=== PATIENT | female | born 1950 | race Two or more races ===

== ENCOUNTER 2016-06-10 13:01 | Inpatient (IN) | payer MEDICARE ==
[2016-06-10 14:00] LABS: VENOUS BLOOD BASE EXCESS -1.2 mmol/L; VENOUS BLOOD HCO3 23.3 mmol/L (20-32); VENOUS BLOOD PCO2 38.1 mmHg (35-63); VENOUS BLOOD PH 7.4 (7.30-7.42)
[2016-06-10 14:02] LABS: HEMATOCRIT 31.7 % (36.0-47.0); HEMOGLOBIN 9.6 g/dL (12.0-15.5); HGB HCT DIFFERENCE -2.9; MEAN CORPUSCULAR HEMOGLOBIN 16.8 pg (27.0-33.4); MEAN CORPUSCULAR HGB CONC 30.4 g/dL (32.0-36.0); MEAN CORPUSCULAR VOLUME 55 fl (80-97); RED BLOOD COUNT 5.73 10^6/uL (3.72-5.28); RED CELL DISTRIBUTION WIDTH 20.5 % (11.5-14.0); WHITE BLOOD COUNT 13.7 10^3/uL (4.0-10.5)
[2016-06-10 14:06] LABS: PROTHROMBIN TIME 13.4 SEC (11.4-15.4)
--- NOTE | 2016-06-10 14:07 | ER Document Report ---
ED General - General Chief Complaint: Fever Stated Complaint: FEVER,HEADACHE Mode of Arrival: Ambulatory Information source: Patient Notes: 66-year-old female presents with complaints of fever and sore throat foul- smelling urine. Patient notes urine foul-smelling for a few months. Patient notes fever this morning notes coworker had sore throat yesterday TRAVEL OUTSIDE OF THE [place] IN LAST 30 DAYS: No - HPI Onset: Other Onset/Duration: Persistent Quality of pain: Achy Severity: Mild Pain Level: 1 Associated symptoms: Fever, Headache, Sore throat Exacerbated by: Denies Relieved by: Denies Similar symptoms previously: No Recently seen / treated by doctor: No - Related Data Allergies/Adverse Reactions: No Known Allergies Allergy (Verified 06/10/16 13:17) Past Medical History - Social History Smoking Status: Never Smoker Cigarette use (# per day): No Chew tobacco use (# tins/day): No Smoking Education Provided: No Family History: None - Past Medical History Cardiac Medical History: Reports: Hx Hypertension Denies: Hx Coronary Artery Disease, Hx Heart Attack Pulmonary Medical History: Denies: Hx Asthma, Hx Bronchitis, Hx COPD, Hx Pneumonia Neurological Medical History: Denies: Hx Cerebrovascular Accident Malignancy Medical History: Reports: Hx Lung Cancer GI Medical History: Reports: Hx Gastroesophageal Reflux Disease Musculoskeltal Medical History: Reports Hx Arthritis Past Surgical History: Reports: Hx Cholecystectomy - Immunizations Hx Diphtheria, Pertussis, Tetanus Vaccination: Yes Review of Systems - Review of Systems Notes: REVIEW OF SYSTEMS: CONSTITUTIONAL : Admits to fever EENT: Admits to sore throat CARDIOVASCULAR: Denies chest pain. Denies palpitations or racing or irregular heart beat. Denies ankle edema. RESPIRATORY: Denies cough, cold, or chest congestion. Denies shortness of breath, difficulty breathing, or wheezing. GASTROINTESTINAL: Denies abdominal pain or distention. Denies nausea, vomiting , or diarrhea. Denies blood in vomitus, stools, or per rectum. Denies black, tarry stools. Denies constipation. GENITOURINARY: Admits to burning on urination FEMALE GENITOURINARY: Denies vaginal bleeding, heavy or abnormal periods, irregular periods. Denies vaginal discharge or odor. MUSCULOSKELETAL: Denies back or neck pain or stiffness. Denies joint pain or swelling. SKIN: Denies rash, lesions or sores. HEMATOLOGIC : Denies easy bruising or bleeding. LYMPHATIC: Denies swollen, enlarged glands. NEUROLOGICAL: Admits to headache PSYCHIATRIC: Denies anxiety or stress. Denies depression, suicidal ideation, or homicidal ideation. ALL OTHER SYSTEMS REVIEWED AND NEGATIVE. Dictation was performed using [employer] voice recognition software PHYSICAL EXAMINATION: GENERAL: Well-appearing, well-nourished and in no acute distress. HEAD: Atraumatic, normocephalic. EYES: Pupils equal round and reactive to light, extraocular movements intact, conjunctiva are normal. ENT: Nares patent, oropharynx clear without exudates. Moist mucous membranes. NECK: Normal range of motion, supple without lymphadenopathy LUNGS: Breath sounds clear to auscultation bilaterally and equal. No wheezes rales or rhonchi. HEART: Regular rate and rhythm without murmurs ABDOMEN: Soft, nontender, nondistended abdomen. No guarding, no rebound. No masses appreciated. Female : deferred Musculoskeletal: Normal range of motion, no pitting or edema. No cyanosis. NEUROLOGICAL: Cranial nerves grossly intact. Normal speech, normal gait. Normal sensory, motor exams PSYCH: Normal mood, normal affect. SKIN: Warm, Dry, normal turgor, no rashes or lesions noted. Physical Exam - Vital signs Vitals: Temp Pulse Resp BP Pulse Ox 103.1 F H 96 18 128/76 H 93 06/10/16 13:05 06/10/16 13:05 06/10/16 13:05 06/10/16 13:05 06/10/16 13:05 Course - Re-evaluation Re-evalutation: 06/10/16 14:21 Patient is noted to be febrile temp 103.1, otherwise patient looks well in no specific distress septic workup pending 06/10/16 15:00 06/10/16 15:03 Patient does meet sepsis criteria, lactic acid is elevated 2.7, sources of pneumonia as well as UTI are noted. Patient is started on Levaquin given IV fluids. She will be admitted to hospitalist service at this time - Vital Signs Vital signs: Temp Pulse Resp BP Pulse Ox 103.1 F H 96 18 128/76 H 93 06/10/16 13:05 06/10/16 13:05 06/10/16 13:05 06/10/16 13:05 06/10/16 13:05 - Laboratory Result Diagrams: 06/10/16 13:35 06/10/16 13:35 Laboratory results interpreted by me: 06/10/16 06/10/16 06/10/16 13:29 13:35 13:35 WBC 13.7 H RBC 5.73 H Hgb 9.6 L Hct 31.7 L MCV 55 L MCH 16.8 L MCHC 30.4 L RDW 20.5 H Seg Neuts % (Manual) 87 H Band Neutrophils % 2 L Lymphocytes % (Manual) 5 L Abs Neuts (Manual) 12.2 H Glucose 171 H POC Glucose 178 H Lactic Acid Total Bilirubin 1.9 H Direct Bilirubin 0.5 H AST 44 H ALT 64 H Urine Nitrite Urine Urobilinogen 06/10/16 06/10/16 13:35 13:57 WBC RBC Hgb Hct MCV MCH MCHC RDW Seg Neuts % (Manual) Band Neutrophils % Lymphocytes % (Manual) Abs Neuts (Manual) Glucose POC Glucose Lactic Acid 2.7 H Total Bilirubin Direct Bilirubin AST ALT Urine Nitrite POSITIVE H Urine Urobilinogen 4.0 H - Diagnostic Test Radiology reviewed: Image reviewed, Reports reviewed Critical Care Note - Critical Care Note Total time excluding time spent on procedures (mins): 35 Comments: 35 minutes of critical care time spent in direct contact evaluating and reevaluating the patient, treating symptoms, reviewing labs and studies and speaking with family and consultants excluding any procedures Discharge - Discharge Clinical Impression: Pneumonia Qualifiers: Pneumonia type: due to unspecified organism Laterality: left Lung location: lower lobe of lung Qualified Code(s): J18.1 - Lobar pneumonia, unspecified organism Sepsis Qualifiers: Sepsis type: sepsis due to unspecified organism Qualified Code(s): A41.9 - Sepsis, unspecified organism Urinary tract infection Qualifiers: Urinary tract infection type: acute cystitis Hematuria presence: without hematuria Qualified Code(s): N30.00 - Acute cystitis without hematuria Condition: Fair Disposition: ADMITTED INPATIENT Admitting Provider: Hospitalist Unit Admitted: Telemetry
[2016-06-10 14:19] LABS: ALANINE AMINOTRANSFERASE 64 U/L (9-52); ALBUMIN 4.6 g/dL (3.5-5.0); ALKALINE PHOSPHATASE 74 U/L (38-126); ANION GAP 17 (5-19); ASPARTATE AMINO TRANSFERASE 44 U/L (14-36); BILIRUBIN,DIRECT 0.5 mg/dL (0.0-0.4); BILIRUBIN,TOTAL 1.9 mg/dL (0.2-1.3); BLOOD UREA NITROGEN 13 mg/dL (7-20); CALCIUM 9.2 mg/dL (8.4-10.2); CARBON DIOXIDE 23 mmol/L (22-30); CHLORIDE 101 mmol/L (98-107); CREATININE RESULT 0.65 mg/dL (0.52-1.25); GLUCOSE 171 mg/dL (75-110); POTASSIUM 4.3 mmol/L (3.6-5.0); SODIUM 140.5 mmol/L (137-145)
[2016-06-10 14:21] LABS: BAND NEUTROPHILS % (MANUAL) 2 % (3-5); BASOPHILS % (MANUAL) 0 % (0-2); EOSINOPHILS % (MANUAL) 0 % (0-6); LYMPHOCYTES % (MANUAL) 5 % (13-45); NUCLEATED RED BLOOD CELLS 1 /100 WBC (0); TOTAL CELLS COUNTED 100
[2016-06-10 14:23] LABS: POIKILOCYTOSIS 2+
[2016-06-10 14:24] LABS: ANISOCYTOSIS 2+; OVALOCYTES SLIGHT; TARGET CELLS 1+; TEAR DROP CELLS SLIGHT
[2016-06-10] MEDS: NORMAL SALINE 1000 ML 1,000 ML IV PRN ×5 (14:30→22:40)
[2016-06-10 14:45] LABS: APPEARANCE,URINE SLIGHTLY-CLOUDY; BILIRUBIN,URINE NEGATIVE (NEGATIVE); GLUCOSE, URINE NEGATIVE (NEGATIVE); KETONES,URINE NEGATIVE (NEGATIVE); URINE SPECIFIC GRAVITY 1.012
[2016-06-10 14:46] LABS: LEUKOCYTE ESTERASE,URINE NEGATIVE (NEGATIVE); NITRITE,URINE POSITIVE (NEGATIVE); PROTEIN,URINE NEGATIVE (NEGATIVE)
[2016-06-10] MEDS ORDERED: LEVOFLOXACIN 750 MG/D5W RTU 150 ML IV ONE (14:59)
[2016-06-10] MEDS ORDERED: NORMAL SALINE 1000 ML 1,000 ML IV ONE (14:59)
[2016-06-10] MEDS ORDERED: IPRATROPIUM/ALBUTEROL 0.5-2.5 MG/3 ML AMPUL NEB PRN (15:44)
[2016-06-10] MEDS: ACETAMINOPHEN 325 MG TABLET PO PRN ×2 (17:53→22:39)
--- NOTE | 2016-06-10 17:56 | PDOC H&P ---
History of Present Illness Admission Date/PCP: 06/10/16 15:23 CHELY WELLS MD Patient complains of: Fever History of Present Illness: LEONIDAS RIVERA is a 66 year old female presents from home to the ER with sudden onset of fever at home. She states dates she was in her usual state of health yesterday, in fact was able [place] go [place] and then suddenly last night felt very hot, diaphoretic, chilled with a dry throat and a dry hacking cough with mild cranial headache that is constant and described as dull aching with associated myalgias and arthralgias. She reports dysuria times one month, with increased burning and itching over the last 7 days, states her urine has a foul odor and has become cloudy. She denies recent travel. She denies nausea vomiting diarrhea, melena , hematochezia, hematuria, rash, insect bites. Evaluation in the emergency department shows a urinary tract infection, she had a temperature 103.1 in the emergency department with a lactic acid elevated at 2.7 and leukocytosis 13.7 being the criteria for sepsis therefore we were asked to admit for further evaluation and management. Of note, the patient has a history of lung adenocarcinoma status post left lower lobe resection. She did not receive radiation or chemotherapy as she was told "your cancer free". She is followed with annual CT scans by her surgeon in [place]. Her last CT scan of the chest was in May 2015, therefore she is due for repeat scanning at this time. Chest x-ray here shows what could be chronic changes but there are possible parenchymal changes suggestive of either atelectasis or infiltrative diseases well. Past Medical History Cardiac Medical History: Reports: Hypertension Denies: Coronary Artery Disease, Myocardial Infarction Pulmonary Medical History: Reports: Chronic Obstructive Pulmonary Disease (COPD ) - Non-O2, non-nebulizer nonsteroid dependent Denies: Asthma, Bronchitis, Pneumonia Malignancy Medical History: Reports: Lung Cancer GI Medical History: Reports: Gastroesophageal Reflux Disease Musculoskeltal Medical History: Reports: Arthritis Hematology: Reports: Anemia, Other - Intracranial and thoracic aneurysm Past Surgical History Past Surgical History: Reports: Cholecystectomy, Other - Left lower lobectomy Social History Information Source: Patient Smoking Status: Former Smoker - Quit smoking 3 years ago Frequency of Alcohol Use: None Hx Recreational Drug Use: No Hx Prescription Drug Abuse: No - Advance Directive Resuscitation Status: Full Code Family History Family History: None. denies: Malignancy Parental Family History Reviewed: Yes Children Family History Reviewed: Yes Sibling(s) Family History Reviewed.: Yes Medication/Allergy Home Medications: Albuterol Sulfate [Proair HFA] 2 puff IH Q6HP PRN 06/10/16 Amlodipine Besylate [Norvasc 5 mg Tablet] 5 mg PO DAILY 06/10/16 Cholecalciferol (Vitamin D3) [Vitamin D3 1000 Unit Tablet] 1,000 unit PO DAILY 06/10/16 Metoprolol Tartrate [Lopressor 25 mg Tablet] 25 mg PO BID 06/10/16 Multivitamin/Iron/Folic Acid [Centrum Women Tablet] 1 tab PO DAILY 06/10/16 Pantoprazole Sodium [Protonix] 40 mg PO DAILY 06/10/16 Zolpidem Tartrate [Ambien 5 mg Tablet] 5 mg PO QHS 06/10/16 Allergies/Adverse Reactions: No Known Allergies Allergy (Verified 06/10/16 13:17) Review of Systems Constitutional: PRESENT: chills, fatigue, fever(s), headache(s). ABSENT: night sweats, weight gain, weight loss Eyes: ABSENT: visual disturbances Ears: ABSENT: hearing changes Nose, Mouth, and Throat: PRESENT: sore throat Cardiovascular: ABSENT: chest pain, dyspnea on exertion, edema, orthropnea, palpitations Respiratory: PRESENT: cough. ABSENT: hemoptysis, sputum Gastrointestinal: ABSENT: abdominal pain, constipation, diarrhea, hematemesis, hematochezia, nausea, vomiting Genitourinary: ABSENT: dysuria, hematuria Musculoskeletal: ABSENT: joint swelling Integumentary: ABSENT: rash, wounds Neurological: ABSENT: abnormal gait, abnormal speech, confusion, dizziness, focal weakness, syncope Psychiatric: ABSENT: anxiety, depression Endocrine: ABSENT: cold intolerance, heat intolerance, polydipsia, polyuria Hematologic/Lymphatic: ABSENT: easy bleeding, easy bruising Physical Exam Vital Signs: Temp Pulse Resp BP Pulse Ox 102.1 F H 101 H 20 129/64 H 99 06/10/16 17:23 06/10/16 17:23 06/10/16 17:23 06/10/16 17:23 06/10/16 17:23 Intake & Output 06/09/16 06/10/16 06/11/16 06:59 06:59 06:59 Weight 62.1 kg PHYSICAL EXAM GENERAL: NAD; well developed, well nourished; no obese; alert and oriented to person, place, time, situation HEENT: normocephalic, atraumatic; EOMI, PERRLA, no conjunctival injection, no scleral icterus; oral mucosa moist; neck supple, no LAD, normal ROM RESPIRATORY: no accessory muscle use, no increased WOB, good air entry bilaterally; no wheezes, rales, rhonchi; bilateral inspiratory crackles CARDIO: no JVD; RRR; soft 2/6 decrescendo systolic murmur left second intercostal space, nonradiating; mild tachycardia VASCULAR: no carotid bruit; no abdominal bruit; no pallor; 2+ radial; normal capillary refill GI: soft; nondistended; normal bowel sounds; no hepato spleno megaly; no rebound, rigidity, guarding; mild tenderness to left lower quadrant NEURO: normal patella reflexes; normal sensation; normal motor function; no gait abnls; no dysarthria; no nystagmus; tongue protrudes midline MSK: 5/5 strength; normal ROM hips; ambulatory without assistance; no tenderness EXTREMITIES: no calf tender; no palpable cords in calf; no clubbing, cyanosis , pedal edema PSYCH: normal affect, normal mood SKIN: warm; moist; no petechiae; no telengectasias; no jaundice; no rash Results Laboratory Results: Labs reviewed, CBC shows a leukocytosis of 13.7 and perhaps more importantly her baseline WBC count appears to however around 3000 so this is a marked leukocytosis for her, H&H of 9.6 and 32 which appear to be at her baseline with a markedly low MCV at 55 and MCHC of 30.4, normal platelets at 193, 2% bands; INR is normal; VBG shows a normal pH; chemistries are unremarkable with good renal function and LFTs show a mild elevation of AST and ALT and indirect bilirubin 1.4, lactic acid is 2.7; urinalysis shows positive nitrite for urobilinogen 1 WBC and trace amount of bacteria; she was negative for influenza A and B rapid group a strep screen also negative Impressions: Chest CT 06/10/16 00:00 IMPRESSION: 1. Right upper lobe pneumonia. 2. Cardiomegaly and ascending aortic ectasia. 3. Chronic pneumobilia. Chest X-Ray 06/10/16 13:03 IMPRESSION: Improving pneumonia. Status: Image reviewed by me - Agree with radiology Assessment & Plan - Diagnosis (1) Pneumonia Qualifiers: Pneumonia type: due to unspecified organism Laterality: right Lung location: upper lobe of lung Qualified Code(s): J18.1 - Lobar pneumonia, unspecified organism Is this a current diagnosis for this admission?: YesPlan: She is at risk for gram-negative organisms including pseudomonas given prior surgery, hospital exposure, and fixed lung disease. She will be admitted to monitored bed for broad-spectrum antibiotics, supplemental O2 as needed, nebulizer therapy, incentive spirometer. (2) UTI (urinary tract infection) Qualifiers: Urinary tract infection type: acute cystitis Hematuria presence: without hematuria Qualified Code(s): N30.00 - Acute cystitis without hematuria Is this a current diagnosis for this admission?: YesPlan: Should be covered with the above antibiotics, follow up on urine culture. Narrow antibiotics accordingly. (3) Sepsis Qualifiers: Sepsis type: sepsis due to unspecified organism Qualified Code(s): A41.9 - Sepsis, unspecified organism Is this a current diagnosis for this admission?: YesPlan: Present on admission. As evidenced by leukocytosis, hyperthermia and a source. Treat with IV fluids, and antibiotics as noted above. (4) Adenocarcinoma of left lung Is this a current diagnosis for this admission?: YesPlan: Reportedly cancer free, no evidence of recurrence of the lungs on CT scan of the chest. (5) Hypertension Qualifiers: Hypertension type: essential hypertension Qualified Code(s): I10 - Essential (primary) hypertension Is this a current diagnosis for this admission?: YesPlan: Resume home regimen as her clinical course will now. (6) Gastroesophageal reflux disease Qualifiers: Esophagitis presence: esophagitis presence not specified Qualified Code(s): K21.9 - Gastro-esophageal reflux disease without esophagitis Is this a current diagnosis for this admission?: YesPlan: Empiric PPI therapy. (7) Brain aneurysm Is this a current diagnosis for this admission?: YesPlan: Stable. (8) Microcytic anemia Is this a current diagnosis for this admission?: YesPlan: Appears to be near baseline, sent labs in the morning for anemia workup as she appears to be iron deficient based on the severe microcytosis. - Time Time Spent: Greater than 70 Minutes Medications reviewed and adjusted accordingly: Yes Anticipated discharge: Home Within: within 72 hours - Inpatient Certification Based on my medical assessment, after consideration of the patient's comorbidities, presenting symptoms, or acuity I expect that the services needed warrant INPATIENT care.: Yes I certify that my determination is in accordance with my understanding of Medicare's requirements for reasonable and necessary INPATIENT services [42 CFR 412.3e].: Yes Medical Necessity: Significant Comorbidiites Make Outpatient Treatment Too Risky , Need For IV Fluids, Need for IV Antibiotics, Risk of Complication if Not Cared For in Hospital
[2016-06-10] MEDS ORDERED: CEFEPIME INJ 2 GM VIAL IV PRN (20:00)
--- NOTE | 2016-06-10 20:46 | EKG REPORT ---
SEVERITY:- ABNORMAL ECG - SINUS RHYTHM PROBABLE LEFT ATRIAL ABNORMALITY CONSIDER ANTEROSEPTAL INFARCT BORDERLINE T ABNORMALITIES, INFERIOR LEADS : Confirmed by: Ishmael Franco 10-Jun-2016 20:45:06
[2016-06-10] MEDS ORDERED: CEFEPIME 2 GM/D5W RTU 2 GM/50 ML RTUPB IV ONE ×2 (22:30→22:56)
[2016-06-10] MEDS: GUAIFENESIN 600 MG TABLET.SA PO SCH (22:39)
[2016-06-11] MEDS: ACETAMINOPHEN 325 MG TABLET PO PRN ×2 (05:26→17:33)
[2016-06-11] MEDS: LANSOPRAZOLE 15 MG TAB.RAP.DR PO SCH (05:26)
[2016-06-11 06:49] LABS: ANION GAP 10 (5-19); BLOOD UREA NITROGEN 8 mg/dL (7-20); CALCIUM 8.4 mg/dL (8.4-10.2); CARBON DIOXIDE 21 mmol/L (22-30); CHLORIDE 107 mmol/L (98-107); CREATININE RESULT 0.49 mg/dL (0.52-1.25); GLUCOSE 158 mg/dL (75-110); SODIUM 138.4 mmol/L (137-145)
[2016-06-11 07:45] LABS: HEMATOCRIT 29.1 % (36.0-47.0); HEMOGLOBIN 8.5 g/dL (12.0-15.5); HGB HCT DIFFERENCE -3.6; MEAN CORPUSCULAR HEMOGLOBIN 15.7 pg (27.0-33.4); MEAN CORPUSCULAR HGB CONC 29.4 g/dL (32.0-36.0); MEAN CORPUSCULAR VOLUME 54 fl (80-97); RED BLOOD COUNT 5.42 10^6/uL (3.72-5.28); WHITE BLOOD COUNT 12.1 10^3/uL (4.0-10.5)
[2016-06-11] MEDS: ENOXAPARIN SODIUM INJ 40 MG/0.4 ML DISP.SYRIN SUBCUT SCH (07:53)
[2016-06-11 08:03] LABS: FOLATE > 20.00 ng/mL (>2.76)
[2016-06-11 08:12] LABS: BAND NEUTROPHILS % (MANUAL) 2 % (3-5); BASOPHILS % (MANUAL) 0 % (0-2); EOSINOPHILS % (MANUAL) 0 % (0-6); LYMPHOCYTES % (MANUAL) 15 % (13-45); TOTAL CELLS COUNTED 100
[2016-06-11 08:14] LABS: HYPOCHROMASIA 3+; MICROCYTOSIS 3+; OVALOCYTES 1+; POIKILOCYTOSIS 3+; POLYCHROMASIA SLIGHT; TARGET CELLS 1+; TEAR DROP CELLS SLIGHT
[2016-06-11] MEDS ORDERED: MAGNESIUM HYDROXIDE SUSP 30 ML UDCUP PO PRN (09:18)
[2016-06-11] MEDS ORDERED: VANCOMYCIN HCL 0 MG in DEXTROSE 5%-WATER 250 ML IV NR (09:30)
[2016-06-11] MEDS ORDERED: CEFEPIME 2 GM/D5W RTU 2 GM/50 ML RTUPB IV SCH (10:00)
[2016-06-11] MEDS: LACTOBACILLUS ACIDOPHILUS 250 MG TAB PO SCH ×2 (10:02→17:26)
[2016-06-11] MEDS: DOCUSATE SODIUM 100 MG CAPSULE PO SCH ×2 (10:02→17:26)
[2016-06-11] MEDS: GUAIFENESIN 600 MG TABLET.SA PO SCH ×2 (10:02→21:54)
[2016-06-11] MEDS: CEFEPIME HCL 2 GM in DEXTROSE 5%-WATER 100 ML IV SCH ×2 (10:02→21:54)
--- NOTE | 2016-06-11 14:22 | PDOC PROGRESS REPORT ---
Subjective Progress Note for:: 06/11/16 Subjective:: Reason for follow-up visit: Pneumonia, UTI, sepsis Hospital course: LEONIDAS RIVERA is a 66 year old female presents from home to the ER with sudden onset of fever at home. She states dates she was in her usual state of health yesterday, in fact was able to go to work [place] and then suddenly last night felt very hot, diaphoretic, chilled with a dry throat and a dry hacking cough with mild cranial headache that is constant and described as dull aching with associated myalgias and arthralgias. She reports dysuria times one month, with increased burning and itching over the last 7 days, states her urine has a foul odor and has become cloudy. She denies recent travel. She denies nausea vomiting diarrhea, melena , hematochezia, hematuria, rash, insect bites. Evaluation in the emergency department shows a urinary tract infection, she had a temperature 103.1 in the emergency department with a lactic acid elevated at 2.7 and leukocytosis 13.7 being the criteria for sepsis therefore we were asked to admit for further evaluation and management. Of note, the patient has a history of lung adenocarcinoma status post left lower lobe resection. She did not receive radiation or chemotherapy as she was told "your cancer free". She is followed with annual CT scans by her surgeon in [place]. Her last CT scan of the chest was in May 2015, therefore she is due for repeat scanning at this time. Chest x-ray here shows what could be chronic changes but there are possible parenchymal changes suggestive of either atelectasis or infiltrative diseases well. Overall really doesn't feel any better this morning in fact if anything feels a bit worse. She's more washed out, weak and can barely keep her eyes open. Still complaining of cough but not productive also. She denies chest pain, palpitations, fevers or chills. ROS: per HPI plus a total of 10 systems reviewed, pertinent positives and negatives noted above, remaining systems negative. Physical Exam Vital Signs: Temp Pulse Resp BP Pulse Ox 98.2 F 79 20 123/62 100 06/11/16 12:41 06/11/16 12:41 06/11/16 12:41 06/11/16 12:41 06/11/16 12:41 Intake & Output 06/10/16 06/11/16 06/12/16 06:59 06:59 06:59 Intake Total 3500 Balance 3500 Weight 62.1 kg PHYSICAL EXAM GENERAL: NAD; well developed, well nourished; no obese; drowsy, oriented to person place time and circumstances. Appears ill HEENT: normocephalic, atraumatic; no conjunctival injection, no scleral icterus; oral mucosa moist; RESPIRATORY: no accessory muscle use, no increased WOB, good air entry bilaterally; no wheezes, rales, rhonchi; bilateral inspiratory crackles persist CARDIO: no JVD; RRR; soft 2/6 decrescendo systolic murmur left second intercostal space, nonradiating; no tachycardia VASCULAR: no abdominal bruit; no pallor; 2+ radial; normal capillary refill GI: soft; nondistended; normal bowel sounds; no rebound, rigidity, guarding; NEURO: normal patella reflexes; normal sensation; normal motor function; no dysarthria; no nystagmus; tongue protrudes midline MSK: 4/5 strength; normal ROM hips; no tenderness EXTREMITIES: no calf tender; no palpable cords in calf; no clubbing, cyanosis , pedal edema PSYCH: normal affect, normal mood SKIN: warm; moist; no petechiae; no telengectasias; no jaundice; no rash Results Laboratory Results: 06/11/16 07:32 06/11/16 06:07 06/10/16 06/11/16 06/11/16 18:27 06:07 06:07 WBC Cancelled RBC Cancelled Hgb Cancelled Hct Cancelled MCV Cancelled MCH Cancelled MCHC Cancelled RDW Cancelled Plt Count Cancelled Seg Neutrophils % Cancelled Lymphocytes % Cancelled Monocytes % Cancelled Eosinophils % Cancelled Basophils % Cancelled Absolute Neutrophils Cancelled Absolute Lymphocytes Cancelled Absolute Monocytes Cancelled Absolute Eosinophils Cancelled Absolute Basophils Cancelled Retic Count (auto) Cancelled Absolute Retic Cancelled Sodium 138.4 Potassium 4.0 Chloride 107 Carbon Dioxide 21 L Anion Gap 10 BUN 8 Creatinine 0.49 L Est GFR ( Amer) > 60 Est GFR (Non-Af Amer) > 60 Glucose 158 H Lactic Acid 2.2 H Calcium 8.4 Iron < 10.1 L TIBC 230 L % Saturation UNABLE TO CALCULATE Ferritin 750.00 H Vitamin B12 398.0 Folate > 20.00 06/11/16 07:32 WBC 12.1 H RBC 5.42 H Hgb 8.5 L Hct 29.1 L MCV 54 L MCH 15.7 L MCHC 29.4 L RDW 21.0 H Plt Count 149 L Seg Neutrophils % Not Reportable Lymphocytes % Not Reportable Monocytes % Not Reportable Eosinophils % Not Reportable Basophils % Not Reportable Absolute Neutrophils Not Reportable Absolute Lymphocytes Not Reportable Absolute Monocytes Not Reportable Absolute Eosinophils Not Reportable Absolute Basophils Not Reportable Retic Count (auto) 3.04 H Absolute Retic 0.165 H Sodium Potassium Chloride Carbon Dioxide Anion Gap BUN Creatinine Est GFR ( Amer) Est GFR (Non-Af Amer) Glucose Lactic Acid Calcium Iron TIBC % Saturation Ferritin Vitamin B12 Folate Impressions: Chest CT 06/10/16 00:00 IMPRESSION: 1. Right upper lobe pneumonia. 2. Cardiomegaly and ascending aortic ectasia. 3. Chronic pneumobilia. Chest X-Ray 06/10/16 13:03 IMPRESSION: Improving pneumonia. Assessment & Plan - Diagnosis (1) Pneumonia Qualifiers: Pneumonia type: due to unspecified organism Laterality: right Lung location: upper lobe of lung Qualified Code(s): J18.1 - Lobar pneumonia, unspecified organism Is this a current diagnosis for this admission?: YesPlan: Not improved. Add MRSA coverage. She is at risk for gram-negative organisms including pseudomonas given prior surgery, hospital exposure, and fixed lung disease. She will be admitted to monitored bed for broad-spectrum antibiotics, supplemental O2 as needed, nebulizer therapy, incentive spirometer. (2) UTI (urinary tract infection) Qualifiers: Urinary tract infection type: acute cystitis Hematuria presence: without hematuria Qualified Code(s): N30.00 - Acute cystitis without hematuria Is this a current diagnosis for this admission?: YesPlan: Culture shows gram-negative bg, identification and susceptibility still pending. Should be covered with the above antibiotics, follow up on urine culture. Narrow antibiotics accordingly. (3) Sepsis Qualifiers: Sepsis type: sepsis due to unspecified organism Qualified Code(s): A41.9 - Sepsis, unspecified organism Is this a current diagnosis for this admission?: YesPlan: Minimally improved. Present on admission. As evidenced by leukocytosis, hyperthermia and a source. Treat with IV fluids, and antibiotics as noted above. (4) Adenocarcinoma of left lung Is this a current diagnosis for this admission?: Yes (5) Hypertension Qualifiers: Hypertension type: essential hypertension Qualified Code(s): I10 - Essential (primary) hypertension Is this a current diagnosis for this admission?: Yes (6) Gastroesophageal reflux disease Qualifiers: Esophagitis presence: esophagitis presence not specified Qualified Code(s): K21.9 - Gastro-esophageal reflux disease without esophagitis Is this a current diagnosis for this admission?: Yes (7) Brain aneurysm Is this a current diagnosis for this admission?: Yes (8) Microcytic anemia Is this a current diagnosis for this admission?: Yes - Time Time Spent with patient: 25-34 minutes Medications reviewed and adjusted accordingly: Yes Anticipated discharge: Home Within: within 72 hours
[2016-06-11] MEDS: LEVOFLOXACIN 750 MG/D5W RTU 750 MG/150 ML RTUPB IV SCH (15:02)
[2016-06-11] MEDS: VANCOMYCIN HCL 750 MG in DEXTROSE 5%-WATER 250 ML IV SCH (17:26)
[2016-06-11] MEDS ORDERED: LEVOFLOXACIN 750 MG/D5W RTU 150 ML IV SCH (18:00)
[2016-06-11] MEDS: NORMAL SALINE 1000 ML 1,000 ML IV PRN (21:57)
[2016-06-12] MEDS: LANSOPRAZOLE 15 MG TAB.RAP.DR PO SCH (05:47)
[2016-06-12] MEDS: VANCOMYCIN HCL 750 MG in DEXTROSE 5%-WATER 250 ML IV SCH ×2 (05:47→17:23)
[2016-06-12 07:36] LABS: HEMATOCRIT 26.4 % (36.0-47.0); HEMOGLOBIN 8.1 g/dL (12.0-15.5); HGB HCT DIFFERENCE -2.1; MEAN CORPUSCULAR HEMOGLOBIN 16.7 pg (27.0-33.4); MEAN CORPUSCULAR HGB CONC 30.8 g/dL (32.0-36.0); MEAN CORPUSCULAR VOLUME 54 fl (80-97); RED BLOOD COUNT 4.86 10^6/uL (3.72-5.28); RED CELL DISTRIBUTION WIDTH 20.8 % (11.5-14.0)
[2016-06-12 07:59] LABS: ANION GAP 11 (5-19); BLOOD UREA NITROGEN 6 mg/dL (7-20); CALCIUM 8.3 mg/dL (8.4-10.2); CARBON DIOXIDE 23 mmol/L (22-30); CHLORIDE 108 mmol/L (98-107); CREATININE RESULT 0.47 mg/dL (0.52-1.25); GLUCOSE 123 mg/dL (75-110); POTASSIUM 3.7 mmol/L (3.6-5.0); SODIUM 142.1 mmol/L (137-145)
[2016-06-12 08:13] LABS: BASOPHILS % (MANUAL) 0 % (0-2); EOSINOPHILS % (MANUAL) 1 % (0-6); LYMPHOCYTES % (MANUAL) 16 % (13-45); TOTAL CELLS COUNTED 100
[2016-06-12 08:16] LABS: ANISOCYTOSIS 2+; HYPOCHROMASIA 4+; MICROCYTOSIS 4+
[2016-06-12 08:17] LABS: BURR CELLS 1+; OVALOCYTES 2+; POIKILOCYTOSIS 3+; ROULEAUX 1+; SCHISTOCYTES SLIGHT; TARGET CELLS 2+
[2016-06-12] MEDS: ENOXAPARIN SODIUM INJ 40 MG/0.4 ML DISP.SYRIN SUBCUT SCH (08:29)
[2016-06-12] MEDS: CEFEPIME HCL 2 GM in DEXTROSE 5%-WATER 100 ML IV SCH ×2 (09:11→22:18)
[2016-06-12] MEDS: GUAIFENESIN 600 MG TABLET.SA PO SCH ×2 (09:11→22:18)
[2016-06-12] MEDS: DOCUSATE SODIUM 100 MG CAPSULE PO SCH ×2 (09:11→17:23)
[2016-06-12] MEDS: LACTOBACILLUS ACIDOPHILUS 250 MG TAB PO SCH ×2 (09:11→17:23)
--- NOTE | 2016-06-12 12:35 | PDOC PROGRESS REPORT ---
Subjective Progress Note for:: 06/12/16 Subjective:: Reason for follow-up visit: Pneumonia, UTI, sepsis Hospital course: LEONIDAS RIVERA is a 66 year old female presents from home to the ER with sudden onset of fever at home. She states dates she was in her usual state of health yesterday, in fact was able [place] go [place] and then suddenly last night felt very hot, diaphoretic, chilled with a dry throat and a dry hacking cough with mild cranial headache that is constant and described as dull aching with associated myalgias and arthralgias. She reports dysuria times one month, with increased burning and itching over the last 7 days, states her urine has a foul odor and has become cloudy. She denies recent travel. She denies nausea vomiting diarrhea, melena , hematochezia, hematuria, rash, insect bites. Evaluation in the emergency department shows a urinary tract infection, she had a temperature 103.1 in the emergency department with a lactic acid elevated at 2.7 and leukocytosis 13.7 being the criteria for sepsis therefore we were asked to admit for further evaluation and management. Of note, the patient has a history of lung adenocarcinoma status post left lower lobe resection. She did not receive radiation or chemotherapy as she was told "your cancer free". She is followed with annual CT scans by her surgeon in [place]. Her last CT scan of the chest was in May 2015, therefore she is due for repeat scanning at this time. Chest x-ray here shows what could be chronic changes but there are possible parenchymal changes suggestive of either atelectasis or infiltrative diseases well. Finally starting to show some improvement, her fever broke accounting for this I think. Still complaining of cough but not productive also. She denies chest pain, palpitations, or chills. ROS: per HPI plus a total of 10 systems reviewed, pertinent positives and negatives noted above, remaining systems negative. Physical Exam Vital Signs: Temp Pulse Resp BP Pulse Ox 98.2 F 72 16 132/66 H 98 06/12/16 11:15 06/12/16 11:15 06/12/16 11:15 06/12/16 11:15 06/12/16 11:15 Intake & Output 06/11/16 06/12/16 06/13/16 06:59 06:59 06:59 Intake Total 3500 940 Balance 3500 940 Weight 62.1 kg PHYSICAL EXAM GENERAL: NAD; well developed, well nourished; no obese; alert and oriented to person place time and circumstances. Appears less ill this morning HEENT: normocephalic, atraumatic; no conjunctival injection, no scleral icterus; oral mucosa moist; RESPIRATORY: no accessory muscle use, no increased WOB, good air entry bilaterally; no wheezes, rales, rhonchi; bilateral inspiratory crackles persist CARDIO: no JVD; RRR; soft 2/6 decrescendo systolic murmur left second intercostal space, nonradiating; no tachycardia VASCULAR: no abdominal bruit; no pallor; 2+ radial; normal capillary refill GI: soft; nondistended; normal bowel sounds; no rebound, rigidity, guarding; NEURO: normal patella reflexes; normal sensation; normal motor function; no dysarthria; no nystagmus; tongue protrudes midline MSK: 4/5 strength; normal ROM hips; no tenderness EXTREMITIES: no calf tender; no palpable cords in calf; no clubbing, cyanosis , pedal edema PSYCH: normal affect, normal mood SKIN: warm; moist; no petechiae; no telengectasias; no jaundice; no rash Results Laboratory Results: 06/12/16 06:38 06/12/16 06:38 06/12/16 06/12/16 06:38 06:38 WBC 6.0 RBC 4.86 Hgb 8.1 L Hct 26.4 L MCV 54 L MCH 16.7 L MCHC 30.8 L RDW 20.8 H Plt Count 157 Seg Neutrophils % Not Reportable Lymphocytes % Not Reportable Monocytes % Not Reportable Eosinophils % Not Reportable Basophils % Not Reportable Absolute Neutrophils Not Reportable Absolute Lymphocytes Not Reportable Absolute Monocytes Not Reportable Absolute Eosinophils Not Reportable Absolute Basophils Not Reportable Sodium 142.1 Potassium 3.7 Chloride 108 H Carbon Dioxide 23 Anion Gap 11 BUN 6 L Creatinine 0.47 L Est GFR ( Amer) > 60 Est GFR (Non-Af Amer) > 60 Glucose 123 H Calcium 8.3 L Assessment & Plan - Diagnosis (1) Pneumonia Qualifiers: Pneumonia type: due to unspecified organism Laterality: right Lung location: upper lobe of lung Qualified Code(s): J18.1 - Lobar pneumonia, unspecified organism Is this a current diagnosis for this admission?: YesPlan: improved. Added MRSA coverage. She is at risk for gram-negative organisms including pseudomonas given prior surgery, hospital exposure, and fixed lung disease. continue broad-spectrum antibiotics, supplemental O2 as needed, nebulizer therapy, incentive spirometer. will need 7-10d course of abx, hopefully switch to oral once cultures results available. (2) UTI (urinary tract infection) Qualifiers: Urinary tract infection type: acute cystitis Hematuria presence: without hematuria Qualified Code(s): N30.00 - Acute cystitis without hematuria Is this a current diagnosis for this admission?: YesPlan: Culture shows gram-negative bg, identification and susceptibility still pending. Should be covered with the above antibiotics, follow up on urine culture. Narrow antibiotics accordingly. (3) Sepsis Qualifiers: Sepsis type: sepsis due to unspecified organism Qualified Code(s): A41.9 - Sepsis, unspecified organism Is this a current diagnosis for this admission?: YesPlan: improved. Present on admission. As evidenced by leukocytosis, hyperthermia and a source. Treat with IV fluids, and antibiotics as noted above. (4) Microcytic anemia Is this a current diagnosis for this admission?: YesPlan: H/H is dropping without acute blood loss evident. send stool for hemoccult. Appears to be anemia of chronic disease complicated by severe iron deficient based on the severe microcytosis and undetectable iron levels. Interestingly, in 2011 a smear made note of 1+ sickle cells, she seems unaware of this. This smear shows multiple immature cell lines but no sickled cells noted, will send serum ephoresis to better clarify. start FeSO4, no IV sucrose due to acute infection. (5) Adenocarcinoma of left lung Is this a current diagnosis for this admission?: Yes (6) Hypertension Qualifiers: Hypertension type: essential hypertension Qualified Code(s): I10 - Essential (primary) hypertension Is this a current diagnosis for this admission?: Yes (7) Gastroesophageal reflux disease Qualifiers: Esophagitis presence: esophagitis presence not specified Qualified Code(s): K21.9 - Gastro-esophageal reflux disease without esophagitis Is this a current diagnosis for this admission?: Yes (8) Brain aneurysm Is this a current diagnosis for this admission?: Yes - Time Time Spent with patient: 25-34 minutes Medications reviewed and adjusted accordingly: Yes Anticipated discharge: Home Within: within 24 hours - Plan Summary Plan Summary: Likely home in the a.m. if CBC remained stable, condition changes to improve and final culture results are available to change to an oral regimen.
[2016-06-12] MEDS: LEVOFLOXACIN 750 MG/D5W RTU 750 MG/150 ML RTUPB IV SCH (16:21)
[2016-06-12] MEDS: FERROUS SULFATE 325 MG TABLET PO SCH (17:23)
[2016-06-13] MEDS: VANCOMYCIN HCL 750 MG in DEXTROSE 5%-WATER 250 ML IV SCH (06:37)
[2016-06-13] MEDS: LANSOPRAZOLE 15 MG TAB.RAP.DR PO SCH (06:37)
[2016-06-13 06:41] LABS: HEMATOCRIT 27.3 % (36.0-47.0); HEMOGLOBIN 8.6 g/dL (12.0-15.5); HGB HCT DIFFERENCE -1.5; MEAN CORPUSCULAR HEMOGLOBIN 16.9 pg (27.0-33.4); MEAN CORPUSCULAR HGB CONC 31.6 g/dL (32.0-36.0); MEAN CORPUSCULAR VOLUME 53 fl (80-97); RED BLOOD COUNT 5.11 10^6/uL (3.72-5.28); RED CELL DISTRIBUTION WIDTH 20.7 % (11.5-14.0); WHITE BLOOD COUNT 5.1 10^3/uL (4.0-10.5)
[2016-06-13 06:55] LABS: ALANINE AMINOTRANSFERASE 39 U/L (9-52); ALBUMIN 3.8 g/dL (3.5-5.0); ALKALINE PHOSPHATASE 57 U/L (38-126); ANION GAP 12 (5-19); ASPARTATE AMINO TRANSFERASE 21 U/L (14-36); BILIRUBIN,DIRECT 0.4 mg/dL (0.0-0.4); BLOOD UREA NITROGEN 10 mg/dL (7-20); CARBON DIOXIDE 24 mmol/L (22-30); CHLORIDE 107 mmol/L (98-107); CREATININE RESULT 0.51 mg/dL (0.52-1.25); GLUCOSE 110 mg/dL (75-110); POTASSIUM 4.1 mmol/L (3.6-5.0); SODIUM 143.1 mmol/L (137-145); TOTAL PROTEIN 6.8 g/dL (6.3-8.2)
[2016-06-13 07:20] LABS: BASOPHILS % (MANUAL) 0 % (0-2); EOSINOPHILS % (MANUAL) 2 % (0-6); LYMPHOCYTES % (MANUAL) 28 % (13-45); TOTAL CELLS COUNTED 100
[2016-06-13 07:25] LABS: ANISOCYTOSIS 2+; MICROCYTOSIS 4+; OVALOCYTES 2+
[2016-06-13 07:26] LABS: BURR CELLS 1+; ROULEAUX 1+; SCHISTOCYTES SLIGHT; TARGET CELLS 2+
[2016-06-13] MEDS: FERROUS SULFATE 325 MG TABLET PO SCH (09:46)
[2016-06-13] MEDS: LACTOBACILLUS ACIDOPHILUS 250 MG TAB PO SCH (09:47)
[2016-06-13] MEDS: DOCUSATE SODIUM 100 MG CAPSULE PO SCH (09:47)
[2016-06-13] MEDS: GUAIFENESIN 600 MG TABLET.SA PO SCH (09:47)
[2016-06-13] MEDS: ENOXAPARIN SODIUM INJ 40 MG/0.4 ML DISP.SYRIN SUBCUT SCH (09:48)
[2016-06-13] MEDS: CEFEPIME HCL 2 GM in DEXTROSE 5%-WATER 100 ML IV SCH (09:48)
[2016-06-13] MEDS ORDERED: VANCOMYCIN HCL 1,000 MG in DEXTROSE 5%-WATER 250 ML IV SCH (14:00)
[2016-06-13 14:34] VITALS: BP 130/61
[2016-06-13] MEDS: LEVOFLOXACIN 750 MG/D5W RTU 750 MG/150 ML RTUPB IV SCH (15:19)
[2016-06-13 16:39] LABS: ALBUMIN 2 3.1 g/dL (2.9-4.4); ALPHA-1-GLOBULIN 2 0.3 g/dL (0.0-0.4); GAMMA GLOBULIN 1.4 g/dL (0.4-1.8); PROTEIN TOTAL SERUM 6.1 g/dL (6.0-8.5)
--- NOTE | 2016-06-15 09:01 | PDOC DISCHARGE SUMMARY ---
General - Admit/Disc Date/PCP Admission Date/Primary Care Provider: 06/10/16 15:44 CHELY WELLS MD Discharge Date: 06/13/16 - Discharge Diagnosis (1) Microcytic anemia Is this a current diagnosis for this admission?: Yes (2) Pneumonia Is this a current diagnosis for this admission?: Yes (3) Sepsis Is this a current diagnosis for this admission?: Yes (4) UTI (urinary tract infection) Is this a current diagnosis for this admission?: Yes - Additional Information Resuscitation Status: Full Code Discharge Diet: As Tolerated Discharge Activity: Activity As Tolerated Home Medications: Albuterol Sulfate [Proair HFA] 2 puff IH Q6HP PRN 06/10/16 Amlodipine Besylate [Norvasc 5 mg Tablet] 5 mg PO DAILY 06/10/16 Cholecalciferol (Vitamin D3) [Vitamin D3 1000 Unit Tablet] 1,000 unit PO DAILY 06/10/16 Metoprolol Tartrate [Lopressor 25 mg Tablet] 25 mg PO BID 06/10/16 Multivitamin/Iron/Folic Acid [Centrum Women Tablet] 1 tab PO DAILY 06/10/16 Pantoprazole Sodium [Protonix] 40 mg PO DAILY 06/10/16 Zolpidem Tartrate [Ambien 5 mg Tablet] 5 mg PO QHS 06/10/16 Amoxicillin/Potassium Clav [Augmentin 875-125 Tablet] 1 each PO BID #20 tablet 06/13/16 Doxycycline Hyclate 100 mg PO BID #20 capsule 06/13/16 Ferrous Sulfate [Feosol 325 mg Tablet] 325 mg PO BIDPCBS #60 tablet 06/13/16 History of Present Illness Patient complains of: fever History of Present Illness: LEONIDAS RIVERA is a 66 year old female presents from home to the ER with sudden onset of fever at home. She states dates she was in her usual state of health yesterday, in fact was able [place] go [place] and then suddenly last night felt very hot, diaphoretic, chilled with a dry throat and a dry hacking cough with mild cranial headache that is constant and described as dull aching with associated myalgias and arthralgias. She reports dysuria times one month, with increased burning and itching over the last 7 days, states her urine has a foul odor and has become cloudy. She denies recent travel. She denies nausea vomiting diarrhea, melena, hematochezia, hematuria, rash, insect bites. Evaluation in the emergency department shows a urinary tract infection, she had a temperature 103.1 in the emergency department with a lactic acid elevated at 2.7 and leukocytosis 13.7 being the criteria for sepsis therefore we were asked to admit for further evaluation and management. Of note, the patient has a history of lung adenocarcinoma status post left lower lobe resection. She did not receive radiation or chemotherapy as she was told "your cancer free". She is followed with annual CT scans by her surgeon in [place]. Her last CT scan of the chest was in May 2015, therefore she is due for repeat scanning at this time. Chest x-ray here shows what could be chronic changes but there are possible parenchymal changes suggestive of either atelectasis or infiltrative diseases well. Hospital Course Hospital Course: presents from home to the ER with sudden onset of fever at home. She states dates she was in her usual state of health yesterday, in fact was able to go to work [place] any [place], and then suddenly last night felt very hot, diaphoretic, chilled with a dry throat and a dry hacking cough with mild cranial headache that is constant and described as dull aching with associated myalgias and arthralgias. She reports dysuria times one month, with increased burning and itching over the last 7 days, states her urine has a foul odor and has become cloudy. She denies recent travel. She denies nausea vomiting diarrhea, melena, hematochezia, hematuria, rash, insect bites. Evaluation in the emergency department shows a urinary tract infection, she had a temperature 103.1 in the emergency department with a lactic acid elevated at 2.7 and leukocytosis 13.7 being the criteria for sepsis therefore we were asked to admit for further evaluation and management. Of note, the patient has a history of lung adenocarcinoma status post left lower lobe resection. She did not receive radiation or chemotherapy as she was told "your cancer free". She is followed with annual CT scans by her surgeon in [place]. Her last CT scan of the chest was in May 2015, therefore she is due for repeat scanning at this time. Chest x-ray here shows what could be chronic changes but there are possible parenchymal changes suggestive of either atelectasis or infiltrative diseases well. Finally starting to show some improvement, her fever broke accounting for this I think. Still complaining of cough but not productive also. She denies chest pain, palpitations, or chills. Culture of the urine grew Escherichia coli ESBL sensitive to Augmentin Patient was discharged with Augmentin and doxycycline microcytic anemia with severe iron deficiency was diagnosed Patient may have thalassemia minor She was referred to hematology as follow up Physical Exam Vital Signs: Temp Pulse Resp BP Pulse Ox 98.5 F 97 12 130/61 H 99 06/13/16 14:31 06/13/16 14:31 06/13/16 14:31 06/13/16 14:31 06/13/16 14:31 Intake & Output 06/14/16 06/15/16 06/16/16 00:59 00:59 00:59 Intake Total 1007 Balance 1007 Results Laboratory Results: 06/13/16 05:54 06/13/16 05:54 06/12/16 06:07 Total Protein 6.1 Albumin 3.1 Labs- Entire Visit 06/10/16 06/10/16 06/10/16 13:29 13:35 13:35 WBC 13.7 H RBC 5.73 H Hgb 9.6 L Hct 31.7 L MCV 55 L MCH 16.8 L MCHC 30.4 L RDW 20.5 H Plt Count 193 Total Counted 100 Seg Neutrophils % Not Reportable Seg Neuts % (Manual) 87 H Band Neutrophils % 2 L Lymphocytes % Not Reportable Lymphocytes % (Manual) 5 L Atypical Lymphs % Monocytes % Not Reportable Monocytes % (Manual) 6 Eosinophils % Not Reportable Eosinophils % (Manual) 0 Basophils % Not Reportable Basophils % (Manual) 0 Absolute Neutrophils Not Reportable Abs Neuts (Manual) 12.2 H Absolute Lymphocytes Not Reportable Abs Lymphs (Manual) 0.7 Absolute Monocytes Not Reportable Abs Monocytes (Manual) 0.8 Absolute Eosinophils Not Reportable Absolute Eos (Manual) 0.0 Absolute Basophils Not Reportable Abs Basophils (Manual) 0.0 Nucleated RBCs 1 Platelet Estimate Platelet Comment ADEQUATE Polychromasia Hypochromasia Poikilocytosis 2+ Basophilic Stippling Anisocytosis 2+ Microcytosis Target Cells 1+ Tear Drop Cells SLIGHT Ovalocytes SLIGHT [place] Cells Rouleaux Schistocytes Retic Count (manual) Retic Count (auto) Absolute Retic PT 13.4 INR 0.99 VBG pH VBG pCO2 VBG HCO3 VBG Base Excess Sodium Potassium Chloride Carbon Dioxide Anion Gap BUN Creatinine Est GFR ( Amer) Est GFR (Non-Af Amer) Glucose POC Glucose 178 H Lactic Acid Calcium Iron TIBC % Saturation Transferrin Ferritin Total Bilirubin Direct Bilirubin Indirect Bilirubin Neonat Total Bilirubin AST ALT Alkaline Phosphatase Total Protein Albumin Globulin Albumin/Globulin Ratio Pjyvc-3-Bmvtjxvzg Beta Globulins Gamma Globulins M-Curtis PEP Note PEP Interpretation Vitamin B12 Folate Urine Color Urine Appearance Urine pH Ur Specific [place] Urine Protein Urine Glucose (UA) Urine Ketones Urine Blood Urine Nitrite Urine Bilirubin Urine Urobilinogen Ur Leukocyte Esterase Urine WBC (Auto) Urine RBC (Auto) Urine Bacteria (Auto) Urine Mucus (Auto) Urine Ascorbic Acid Time Trough Drawn Vancomycin Trough Influenza A (Rapid) Influenza B (Rapid) Group A Strep Rapid Slides for Path Review 06/10/16 06/10/16 06/10/16 13:35 13:35 13:35 WBC RBC Hgb Hct MCV MCH MCHC RDW Plt Count Total Counted Seg Neutrophils % Seg Neuts % (Manual) Band Neutrophils % Lymphocytes % Lymphocytes % (Manual) Atypical Lymphs % Monocytes % Monocytes % (Manual) Eosinophils % Eosinophils % (Manual) Basophils % Basophils % (Manual) Absolute Neutrophils Abs Neuts (Manual) Absolute Lymphocytes Abs Lymphs (Manual) Absolute Monocytes Abs Monocytes (Manual) Absolute Eosinophils Absolute Eos (Manual) Absolute Basophils Abs Basophils (Manual) Nucleated RBCs Platelet Estimate Platelet Comment Polychromasia Hypochromasia Poikilocytosis Basophilic Stippling Anisocytosis Microcytosis Target Cells Tear Drop Cells Ovalocytes Carolina Cells Rouleaux Schistocytes Retic Count (manual) Retic Count (auto) Absolute Retic PT INR VBG pH 7.40 VBG pCO2 38.1 VBG HCO3 23.3 VBG Base Excess -1.2 Sodium 140.5 Potassium 4.3 Chloride 101 Carbon Dioxide 23 Anion Gap 17 BUN 13 Creatinine 0.65 Est GFR ( Amer) > 60 Est GFR (Non-Af Amer) > 60 Glucose 171 H POC Glucose Lactic Acid 2.7 H Calcium 9.2 Iron TIBC % Saturation Transferrin Ferritin Total Bilirubin 1.9 H Direct Bilirubin 0.5 H Indirect Bilirubin Not Reportable Neonat Total Bilirubin Not Reportable AST 44 H ALT 64 H Alkaline Phosphatase 74 Total Protein 8.0 Albumin 4.6 Globulin Albumin/Globulin Ratio [id number]-[id number] Beta Globulins Gamma Globulins M-Curtis PEP Note PEP Interpretation Vitamin B12 Folate Urine Color Urine Appearance Urine pH Ur Specific [place] Urine Protein Urine Glucose (UA) Urine Ketones Urine Blood Urine Nitrite Urine Bilirubin Urine Urobilinogen Ur Leukocyte Esterase Urine WBC (Auto) Urine RBC (Auto) Urine Bacteria (Auto) Urine Mucus (Auto) Urine Ascorbic Acid Time Trough Drawn Vancomycin Trough Influenza A (Rapid) Influenza B (Rapid) Group A Strep Rapid Slides for Path Review 06/10/16 06/10/16 06/10/16 13:57 13:57 13:57 WBC RBC Hgb Hct MCV MCH MCHC RDW Plt Count Total Counted Seg Neutrophils % Seg Neuts % (Manual) Band Neutrophils % Lymphocytes % Lymphocytes % (Manual) Atypical Lymphs % Monocytes % Monocytes % (Manual) Eosinophils % Eosinophils % (Manual) Basophils % Basophils % (Manual) Absolute Neutrophils Abs Neuts (Manual) Absolute Lymphocytes Abs Lymphs (Manual) Absolute Monocytes Abs Monocytes (Manual) Absolute Eosinophils Absolute Eos (Manual) Absolute Basophils Abs Basophils (Manual) Nucleated RBCs Platelet Estimate Platelet Comment Polychromasia Hypochromasia Poikilocytosis Basophilic Stippling Anisocytosis Microcytosis Target Cells Tear Drop Cells Ovalocytes Leeanna Cells Rouleaux Schistocytes Retic Count (manual) Retic Count (auto) Absolute Retic PT INR VBG pH VBG pCO2 VBG HCO3 VBG Base Excess Sodium Potassium Chloride Carbon Dioxide Anion Gap BUN Creatinine Est GFR ( Amer) Est GFR (Non-Af Amer) Glucose POC Glucose Lactic Acid Calcium Iron TIBC % Saturation Transferrin Ferritin Total Bilirubin Direct Bilirubin Indirect Bilirubin Neonat Total Bilirubin AST ALT Alkaline Phosphatase Total Protein Albumin Globulin Albumin/Globulin Ratio Tcmix-5-Ibaumhhha Beta Globulins Gamma Globulins M-Curtis PEP Note PEP Interpretation Vitamin B12 Folate Urine Color YELLOW Urine Appearance SLIGHTLY-CLOUDY Urine pH 8.0 Ur Specific [place] 1.012 Urine Protein NEGATIVE Urine Glucose (UA) NEGATIVE Urine Ketones NEGATIVE Urine Blood NEGATIVE Urine Nitrite POSITIVE H Urine Bilirubin NEGATIVE Urine Urobilinogen 4.0 H Ur Leukocyte Esterase NEGATIVE Urine WBC (Auto) 1 Urine RBC (Auto) 1 Urine Bacteria (Auto) TRACE Urine Mucus (Auto) RARE Urine Ascorbic Acid NEGATIVE Time Trough Drawn Vancomycin Trough Influenza A (Rapid) NEGATIVE Influenza B (Rapid) NEGATIVE Group A Strep Rapid NEGATIVE Slides for Path Review 06/10/16 06/11/16 06/11/16 18:27 06:07 06:07 WBC Cancelled RBC Cancelled Hgb Cancelled Hct Cancelled MCV Cancelled MCH Cancelled MCHC Cancelled RDW Cancelled Plt Count Cancelled Total Counted Seg Neutrophils % Cancelled Seg Neuts % (Manual) Band Neutrophils % Lymphocytes % Cancelled Lymphocytes % (Manual) Atypical Lymphs % Monocytes % Cancelled Monocytes % (Manual) Eosinophils % Cancelled Eosinophils % (Manual) Basophils % Cancelled Basophils % (Manual) Absolute Neutrophils Cancelled Abs Neuts (Manual) Absolute Lymphocytes Cancelled Abs Lymphs (Manual) Absolute Monocytes Cancelled Abs Monocytes (Manual) Absolute Eosinophils Cancelled Absolute Eos (Manual) Absolute Basophils Cancelled Abs Basophils (Manual) Nucleated RBCs Platelet Estimate Cancelled Platelet Comment Polychromasia Hypochromasia Poikilocytosis Basophilic Stippling Anisocytosis Microcytosis Target Cells Tear Drop Cells Ovalocytes Leeanna Cells Rouleaux Schistocytes Retic Count (manual) Cancelled Retic Count (auto) Cancelled Absolute Retic Cancelled PT INR VBG pH VBG pCO2 VBG HCO3 VBG Base Excess Sodium 138.4 Potassium 4.0 Chloride 107 Carbon Dioxide 21 L Anion Gap 10 BUN 8 Creatinine 0.49 L Est GFR ( Amer) > 60 Est GFR (Non-Af Amer) > 60 Glucose 158 H POC Glucose Lactic Acid 2.2 H Calcium 8.4 Iron < 10.1 L TIBC 230 L % Saturation UNABLE TO CALCULATE Transferrin Ferritin 750.00 H Total Bilirubin Direct Bilirubin Indirect Bilirubin Neonat Total Bilirubin AST ALT Alkaline Phosphatase Total Protein Albumin Globulin Albumin/Globulin Ratio Xmgzi-4-Kvfeypros Beta Globulins Gamma Globulins M-Curtis PEP Note PEP Interpretation Vitamin B12 398.0 Folate > 20.00 Urine Color Urine Appearance Urine pH Ur Specific [place] Urine Protein Urine Glucose (UA) Urine Ketones Urine Blood Urine Nitrite Urine Bilirubin Urine Urobilinogen Ur Leukocyte Esterase Urine WBC (Auto) Urine RBC (Auto) Urine Bacteria (Auto) Urine Mucus (Auto) Urine Ascorbic Acid Time Trough Drawn Vancomycin Trough Influenza A (Rapid) Influenza B (Rapid) Group A Strep Rapid Slides for Path Review Cancelled 06/11/16 06/11/16 06/12/16 06:07 07:32 06:07 WBC 12.1 H RBC 5.42 H Hgb 8.5 L Hct 29.1 L MCV 54 L MCH 15.7 L MCHC 29.4 L RDW 21.0 H Plt Count 149 L Total Counted 100 Seg Neutrophils % Not Reportable Seg Neuts % (Manual) 81 H Band Neutrophils % 2 L Lymphocytes % Not Reportable Lymphocytes % (Manual) 15 Atypical Lymphs % Monocytes % Not Reportable Monocytes % (Manual) 2 L Eosinophils % Not Reportable Eosinophils % (Manual) 0 Basophils % Not Reportable Basophils % (Manual) 0 Absolute Neutrophils Not Reportable Abs Neuts (Manual) 10.0 H Absolute Lymphocytes Not Reportable Abs Lymphs (Manual) 1.8 Absolute Monocytes Not Reportable Abs Monocytes (Manual) 0.2 Absolute Eosinophils Not Reportable Absolute Eos (Manual) 0.0 Absolute Basophils Not Reportable Abs Basophils (Manual) 0.0 Nucleated RBCs Platelet Estimate Platelet Comment ADEQUATE Polychromasia SLIGHT Hypochromasia 3+ Poikilocytosis 3+ Basophilic Stippling PRESENT Anisocytosis Microcytosis 3+ Target Cells 1+ Tear Drop Cells SLIGHT Ovalocytes 1+ Leeanna Cells Rouleaux Schistocytes Retic Count (manual) Retic Count (auto) 3.04 H Absolute Retic 0.165 H PT INR VBG pH VBG pCO2 VBG HCO3 VBG Base Excess Sodium Potassium Chloride Carbon Dioxide Anion Gap BUN Creatinine Est GFR ( Amer) Est GFR (Non-Af Amer) Glucose POC Glucose Lactic Acid Calcium Iron TIBC % Saturation Transferrin 153 L Ferritin Total Bilirubin Direct Bilirubin Indirect Bilirubin Neonat Total Bilirubin AST ALT Alkaline Phosphatase Total Protein 6.1 Albumin 3.1 Globulin 3.0 Albumin/Globulin Ratio 1.0 Sjbvd-0-Ztfkseyjg 0.6 Beta Globulins 0.7 Gamma Globulins 1.4 M-Curtis Not Observed PEP Note Comment PEP Interpretation Comment Vitamin B12 Folate Urine Color Urine Appearance Urine pH Ur Specific [place] Urine Protein Urine Glucose (UA) Urine Ketones Urine Blood Urine Nitrite Urine Bilirubin Urine Urobilinogen Ur Leukocyte Esterase Urine WBC (Auto) Urine RBC (Auto) Urine Bacteria (Auto) Urine Mucus (Auto) Urine Ascorbic Acid Time Trough Drawn Vancomycin Trough Influenza A (Rapid) Influenza B (Rapid) Group A Strep Rapid Slides for Path Review 06/12/16 06/12/16 06/13/16 06:38 06:38 05:54 WBC 6.0 RBC 4.86 Hgb 8.1 L Hct 26.4 L MCV 54 L MCH 16.7 L MCHC 30.8 L RDW 20.8 H Plt Count 157 Total Counted 100 Seg Neutrophils % Not Reportable Seg Neuts % (Manual) 75 Band Neutrophils % Lymphocytes % Not Reportable Lymphocytes % (Manual) 16 Atypical Lymphs % Monocytes % Not Reportable Monocytes % (Manual) 8 Eosinophils % Not Reportable Eosinophils % (Manual) 1 Basophils % Not Reportable Basophils % (Manual) 0 Absolute Neutrophils Not Reportable Abs Neuts (Manual) 4.5 Absolute Lymphocytes Not Reportable Abs Lymphs (Manual) 1.0 Absolute Monocytes Not Reportable Abs Monocytes (Manual) 0.5 Absolute Eosinophils Not Reportable Absolute Eos (Manual) 0.1 Absolute Basophils Not Reportable Abs Basophils (Manual) 0.0 Nucleated RBCs Platelet Estimate Platelet Comment ADEQUATE Polychromasia Hypochromasia 4+ Poikilocytosis 3+ Basophilic Stippling Anisocytosis 2+ Microcytosis 4+ Target Cells 2+ Tear Drop Cells Ovalocytes 2+ Leeanna Cells 1+ Rouleaux 1+ Schistocytes SLIGHT Retic Count (manual) Retic Count (auto) Absolute Retic PT INR VBG pH VBG pCO2 VBG HCO3 VBG Base Excess Sodium 142.1 Potassium 3.7 Chloride 108 H Carbon Dioxide 23 Anion Gap 11 BUN 6 L Creatinine 0.47 L Est GFR ( Amer) > 60 Est GFR (Non-Af Amer) > 60 Glucose 123 H POC Glucose Lactic Acid Calcium 8.3 L Iron TIBC % Saturation Transferrin Ferritin Total Bilirubin Direct Bilirubin Indirect Bilirubin Neonat Total Bilirubin AST ALT Alkaline Phosphatase Total Protein Albumin Globulin Albumin/Globulin Ratio Ycmkc-5-Sazzxpydd Beta Globulins Gamma Globulins M-Curtis PEP Note PEP Interpretation Vitamin B12 Folate Urine Color Urine Appearance Urine pH Ur Specific [place] Urine Protein Urine Glucose (UA) Urine Ketones Urine Blood Urine Nitrite Urine Bilirubin Urine Urobilinogen Ur Leukocyte Esterase Urine WBC (Auto) Urine RBC (Auto) Urine Bacteria (Auto) Urine Mucus (Auto) Urine Ascorbic Acid Time Trough Drawn 0554 Vancomycin Trough 5.0 Influenza A (Rapid) Influenza B (Rapid) Group A Strep Rapid Slides for Path Review 06/13/16 06/13/16 05:54 05:54 WBC 5.1 RBC 5.11 Hgb 8.6 L Hct 27.3 L MCV 53 L MCH 16.9 L MCHC 31.6 L RDW 20.7 H Plt Count 186 Total Counted 100 Seg Neutrophils % Not Reportable Seg Neuts % (Manual) 63 Band Neutrophils % Lymphocytes % Not Reportable Lymphocytes % (Manual) 28 Atypical Lymphs % 1 Monocytes % Not Reportable Monocytes % (Manual) 6 Eosinophils % Not Reportable Eosinophils % (Manual) 2 Basophils % Not Reportable Basophils % (Manual) 0 Absolute Neutrophils Not Reportable Abs Neuts (Manual) 3.2 Absolute Lymphocytes Not Reportable Abs Lymphs (Manual) 1.5 Absolute Monocytes Not Reportable Abs Monocytes (Manual) 0.3 Absolute Eosinophils Not Reportable Absolute Eos (Manual) 0.1 Absolute Basophils Not Reportable Abs Basophils (Manual) 0.0 Nucleated RBCs Platelet Estimate Platelet Comment ADEQUATE Polychromasia Hypochromasia Poikilocytosis Basophilic Stippling Anisocytosis 2+ Microcytosis 4+ Target Cells 2+ Tear Drop Cells Ovalocytes 2+ Leeanna Cells 1+ Rouleaux 1+ Schistocytes SLIGHT Retic Count (manual) Retic Count (auto) Absolute Retic PT INR VBG pH VBG pCO2 VBG HCO3 VBG Base Excess Sodium 143.1 Potassium 4.1 Chloride 107 Carbon Dioxide 24 Anion Gap 12 BUN 10 Creatinine 0.51 L Est GFR ( Amer) > 60 Est GFR (Non-Af Amer) > 60 Glucose 110 POC Glucose Lactic Acid Calcium 9.0 Iron TIBC % Saturation Transferrin Ferritin Total Bilirubin 1.0 Direct Bilirubin 0.4 Indirect Bilirubin Not Reportable Neonat Total Bilirubin Not Reportable AST 21 ALT 39 Alkaline Phosphatase 57 Total Protein 6.8 Albumin 3.8 Globulin Albumin/Globulin Ratio Kumvl-1-Zpnlppsjd Beta Globulins Gamma Globulins M-Curtis PEP Note PEP Interpretation Vitamin B12 Folate Urine Color Urine Appearance Urine pH Ur Specific [place] Urine Protein Urine Glucose (UA) Urine Ketones Urine Blood Urine Nitrite Urine Bilirubin Urine Urobilinogen Ur Leukocyte Esterase Urine WBC (Auto) Urine RBC (Auto) Urine Bacteria (Auto) Urine Mucus (Auto) Urine Ascorbic Acid Time Trough Drawn Vancomycin Trough Influenza A (Rapid) Influenza B (Rapid) Group A Strep Rapid Slides for Path Review Impressions: Chest CT 06/10/16 00:00 IMPRESSION: 1. Right upper lobe pneumonia. 2. Cardiomegaly and ascending aortic ectasia. 3. Chronic pneumobilia. Chest X-Ray 06/10/16 13:03 IMPRESSION: Improving pneumonia. Plan Discharge Plan: home foloow up with PMD follow up with Hematology Time Spent: Greater than 30 Minutes
== END 2016-06-13 15:48 | disposition home or self-care (01) | DRG 871 ==
LOC: ER 13:01 → UNDOADMIN 15:23 → EH 15:23 → 5 17:25
PROVIDERS: ADMIT Family Medicine; ATTEND Family Medicine
PROC: 3E0F73Z Introduction of Anti-inflammatory into Respiratory Tract, Via Natural or Artificial Opening (ICD-10-PCS; principal; 2016-06-10)
DX: A41.9 Sepsis, unspecified organism (principal); J18.1 Lobar pneumonia, unspecified organism; N30.00 Acute cystitis without hematuria; D50.9 Iron deficiency anemia, unspecified; B96.20 Unspecified Escherichia coli [E. coli] as the cause of diseases classified elsewhere; D56.3 Thalassemia minor; I10 Essential (primary) hypertension; J44.9 Chronic obstructive pulmonary disease, unspecified; K21.9 Gastro-esophageal reflux disease without esophagitis; M19.90 Unspecified osteoarthritis, unspecified site; I67.1 Cerebral aneurysm, nonruptured; I77.819 Aortic ectasia, unspecified site; Z87.891 Personal history of nicotine dependence; Z90.2 Acquired absence of lung [part of]; Z90.49 Acquired absence of other specified parts of digestive tract; Z79.899 Other long term (current) drug therapy; Z80.1 Family history of malignant neoplasm of trachea, bronchus and lung
CPT/HCPCS: 36415; 71020; 71260; 80048; 80053; 80202; 81001; 82607; 82728; 82746; 82803; 82962; 83540; 83550; 83605; 84165; 84466; 85025; 85045; 85610; 87040; 87070; 87086; 87088; 87186; 87205; 87804; 87880; 93005; 93010; 99291; J0692; J1650; J1956; J3370; J3490; J7030; J7060

== ENCOUNTER → 2016-10-03 | Outpatient (CLI) | payer MEDICARE ==
--- NOTE | 2016-10-03 12:19 | WOMENS IMAGING REPORT ---
EXAM DESCRIPTION: 3D SCREENING MAMMO BILAT COMPLETED DATE/TIME: 10/03/2016 10:51 am REASON FOR STUDY: ROUTINE SCREENING; Z12.31 Z12.31 ENCNTR SCREEN MAMMOGRAM FOR MALIGNANT NEOPLASM O F DANIEL COMPARISON: 03/01/2015 and 02/24/2013. TECHNIQUE: Standard craniocaudal and mediolateral oblique views of each breast recorded using digita l acquisition and breast tomosynthesis. LIMITATIONS: None. FINDINGS: No masses, calcifications or architectural distortion. No areas of suspicion. Read with the assistance of CAD. .[facility] - R2 C[employer]ova Version 1.3 .[facility] - R2 Cenova Version 1.3 .[facility] - R2 Cenova Version 2.4 .[facility] [place]ova [place] 2.4 .[facility] - R2 [employer]igator Version 9.2 IMPRESSION: NORMAL MAMMOGRAM. BIRADS 1. BREAST DENSITY: b. There are scattered areas of fibroglandular density. BIRAD: 1 NEGATIVE RECOMMENDATION: ROUTINE SCREENING COMMENT: The patient has been notified of the results by letter per MQSA requirements. Additional no tification policies are in place for contacting patient with suspicious or incomplete findings. Quality ID #[id number]: The [employer] recommends an annual screening mammogram for women aged 40 years or over. This facility utilizes a reminder system to ensure that all patients receive reminder letters, and/or direct phone calls for appointments. This includes reminders for routine scr eening mammograms, diagnostic mammograms, or other Breast Imaging Interventions when appropriate. Th is patient will be placed in the appropriate reminder system. The [employer] (ACR) has developed recommendations for screening MRI of the breast s in certain patient populations, to be used in conjunction with mammography. Breast MRI surveillanc e may be appropriate for women with more than 20% lifetime risk of developing breast cancer as deter mined by genetic testing, significant family history of the disease, or history of mantle radiation f or Hodgkins Disease. ACR Practice Guidelines 2008. DBT Technology DBT is a type of tomographic mammography. With conventional mammography, overlapping breast tissue ma y make lesions difficult to detect, even with good compression. DBT uses an x-ray tube that rotates a round the breast, taking images at different angles. These images are then combined to create thin sl ices of the breast that the radiologist can view as a 3D reconstruction. The [employer] unit can perform full-field digital mammograms (2D imaging); or DBT (3D imaging); or both, in a combination mode that quickly performs both the mammogram and the tomosynthesis scan while the breast is still compressed. PQRS 6045F: Fluoroscopic imaging is not utilized for breast tomosynthesis. TECHNICAL DOCUMENTATION: FINDING NUMBER: (1) ASSESSMENT: (1) JOB ID: [id number] [employer] All Rights Reserved
== END ==
LOC: WI 10:50
PROVIDERS: ATTEND Internal Medicine
DX: Z12.31 Encounter for screening mammogram for malignant neoplasm of breast (principal)
CPT/HCPCS: 77063; G0202; 77067

== ENCOUNTER → 2016-12-20 | Outpatient (CLI) | payer MEDICARE ==
--- NOTE | 2016-12-20 09:01 | RADIOLOGY REPORT (SQ) ---
EXAM DESCRIPTION: CT CHEST WITHOUT COMPLETED DATE/TIME: 12/20/2016 8:40 am REASON FOR STUDY: LUNG CA C34.32 MALIGNANT NEOPLASM OF LOWER LOBE, LEFT BRONCHUS OR OBDULIO COMPARISON: CT chest 02/24/2013, 03/26/2013, 06/08/2013, 11/04/2013, 12/10/2014, 05/24/2015, 06/10/2016 TECHNIQUE: CT scan performed of the chest without intravenous contrast. Images reviewed with lung, soft tissue and bone windows. Reconstructed coronal and sagittal MPR images reviewed. All images st ored on PACS. All CT scanners at this facility use dose modulation, iterative reconstruction, and/or weight based d osing when appropriate to reduce radiation dose to as low as reasonably achievable (ALARA). [facility]: Dose Right [facility]: CareDose [facility]: Dose Right [facility]: Teradose 4D [facility]: Smart [employer] RADIATION DOSE: Up-to-date CT equipment and radiation dose reduction techniques were employed. CTDIv ol: 5.2 mGy. DLP: 170 mGy-cm. mGy. LIMITATIONS: No technical limitations. FINDINGS: LUNGS AND PLEURA: Post left lower lobectomy. No worrisome pulmonary nodules. No pleural effusion. No pneumothorax. No focal infiltrates. HILAR AND MEDIASTINAL STRUCTURES: The ascending thoracic aorta is 5 cm in diameter, similar compared to previous studies. There is a heavily calcified aortic valve. Correlate for aortic stenosis or ao rtic insufficiency. Stable small 10 mm precarinal lymph node. HEART AND VASCULAR STRUCTURES: Ascending aorta as above. Moderate coronary artery calcifications. M oderate atherosclerotic aortic calcification. No pericardial effusion. UPPER ABDOMEN: There is air in the biliary tree related to sphincterotomy. THYROID AND OTHER SOFT TISSUES: No masses. No adenopathy. BONES: Osteopenic. No thoracic compression deformity. Old thoracotomy defects left posterolateral r ibs HARDWARE: None in the chest. OTHER: No other significant findings. IMPRESSION: Post left lower lobectomy. Prominent ascending aorta with heavily calcified aortic valve. Correlate for aortic stenosis/aortic insufficiency TECHNICAL DOCUMENTATION: JOB ID: [id number] Quality ID # [id number]: Final reports with documentation of one or more dose reduction techniques (e.g., Au tomated exposure control, adjustment of the mA and/or kV according to patient size, use of iterative reconstruction technique) 2010 [employer]- All Rights Reserved
== END ==
LOC: RAD 08:23
PROVIDERS: ATTEND Internal Medicine
DX: C34.32 Malignant neoplasm of lower lobe, left bronchus or lung (principal)
CPT/HCPCS: 71250

== ENCOUNTER 2017-07-22 21:13 | Emergency (ER) | payer MEDICARE ==
--- NOTE | 2017-07-22 23:09 | ER Document Report ---
ED Headache - General Mode of Arrival: Ambulatory Information source: Patient TRAVEL OUTSIDE OF THE [place] IN LAST 30 DAYS: No - HPI Patient complains to provider of: Headache Onset: Yesterday - General Chief Complaint: Headache Stated Complaint: HEADACHE Time Seen by Provider: 07/22/17 22:50 Notes: Patient is a 67 year old female with a history of Hypertension and GERD presents to the emergency department complaining of a headache onset yesterday. Patient states she hit the left side of her head at work 1 week ago further stating the pain initially went away but came back . Patient describes the pain as an intermittent throbbing with a severity of 4/5. She mentions taking Tylenol in attempt to alleviate her pain but states it would only work for approximately 1 hour. Patient denies any bleeding, syncopal episodes, vomiting or confusion. (EARL GREENE) - Related Data Allergies/Adverse Reactions: No Known Allergies Allergy (Verified 07/22/17 21:37) Past Medical History - General Information source: Patient - Social History Smoking Status: Never Smoker Cigarette use (# per day): No Chew tobacco use (# tins/day): No Smoking Education Provided: No Frequency of alcohol use: None Drug Abuse: None Family History: None - Past Medical History Cardiac Medical History: Reports: Hx Hypertension Pulmonary Medical History: Reports: Hx COPD - Non-O2, non-nebulizer nonsteroid dependent Malignancy Medical History: Reports: Hx Lung Cancer GI Medical History: Reports: Hx Gastroesophageal Reflux Disease Musculoskeltal Medical History: Reports Hx Arthritis Past Surgical History: Reports: Hx Cholecystectomy, Other - Left lower lobectomy - Immunizations Hx Diphtheria, Pertussis, Tetanus Vaccination: Yes Review of Systems - Review of Systems Constitutional: No symptoms reported EENT: No symptoms reported Cardiovascular: No symptoms reported Respiratory: No symptoms reported Gastrointestinal: No symptoms reported Genitourinary: No symptoms reported Female Genitourinary: No symptoms reported Musculoskeletal: No symptoms reported Skin: No symptoms reported Hematologic/Lymphatic: No symptoms reported Neurological/Psychological: See HPI, Headaches -: Yes All other systems reviewed and negative Physical Exam - Vital signs Vitals: Temp Pulse Resp BP Pulse Ox 98.8 F 72 14 147/65 H 96 07/22/17 22:04 07/22/17 22:04 07/22/17 22:04 07/22/17 22:04 07/22/17 22:04 - Notes Notes: GENERAL: Alert, interacts well. No acute distress. HEAD: Normocephalic, atraumatic. No breaking of skin or bruising, not tender to palpation, pain not reproducible. Patient would occasionally wince and grab the left side of her head where she states the pain is. EYES: Pupils equal, round, and reactive to light. Extraocular movements intact. ENT: Oral mucosa moist, tongue midline. NECK: Full range of motion. Supple. Trachea midline. LUNGS: Clear to auscultation bilaterally, no wheezes, rales, or rhonchi. No respiratory distress. HEART: Regular rate and rhythm. No murmurs, gallops, or rubs. ABDOMEN: Soft, non-tender. Non-distended. Bowel sounds present in all 4 quadrants. EXTREMITIES: Moves all 4 extremities spontaneously. No edema, radial, and dorsalis pedis pulses 2/4 bilaterally. No cyanosis. NEUROLOGICAL: Alert and oriented x3. Normal speech. Cranial nerves II through XII grossly intact. Biceps and patellar DTRs 2+ bilaterally. PSYCH: Normal affect, normal mood. SKIN: Warm, dry, and normal turgor. No rashes or lesions noted. (EARL GREENE) Course - Re-evaluation Re-evalutation: 07/23/17 00:52 CT scan of the head is negative, patient is rechecked after Toradol, Compazine and Benadryl and is starting to improve. Discussed with patient that I think she may have 1 of 2 things going on. I discussed that my first suspicion is she has a bruise in her from hitting her head and I expect the pain to improve over the next several days but I will give her a prescription for Neurontin to help with this nerve pain. The second possibility is that this is an early manifestation of shingles but we are not yet seeing the characteristic skin rash. Patient is aware that she should return should she develop vesicles. Patient will be discharged to home. (AVILA COLUNGA) - Vital Signs Vital signs: Temp Pulse Resp BP Pulse Ox 97.9 F 59 L 16 124/74 96 07/23/17 02:32 07/23/17 02:32 07/23/17 02:32 07/23/17 02:32 07/23/17 02:32 Discharge - Discharge Clinical Impression: Left-sided headache Condition: Stable Disposition: HOME, SELF-CARE Additional Instructions: I have two ideas on what your pain is coming from. My first suspicion is that it is coming from a bruised nerve that is causing this electric type pain. Neurontin is a pain medication that decreases the transmission along the nerves , it can cause fatigue, but can help relieve some of your pain. My second suspicion is that this may be the beginning of shingles. If you should develop a rash on your head where the pain is please return to your primary care physician or to the emergency department to receive further treatment for shingles. Prescriptions: Gabapentin [Neurontin 100 mg Capsule] 100 mg PO Q12 #14 capsule Referrals: CHELY WELLS MD [Primary Care Provider] - Follow up as needed Scribe Attestation: 07/23/17 05:52 I personally performed the services described in the documentation, reviewed and edited the documentation which was dictated to the scribe in my presence, and it accurately records my words and actions. (AVILA COLUNGA) Scribe Documentation - Scribe Written by Jesus:: Jesus Hastings, 07/22/2017 23:23 acting as scribe for :: Danielle
--- NOTE | 2017-07-22 23:38 | RADIOLOGY REPORT (SQ) ---
EXAM DESCRIPTION: CT HEAD WITHOUT COMPLETED DATE/TIME: 07/22/2017 11:14 pm REASON FOR STUDY: hit head, left sided headache COMPARISON: None. TECHNIQUE: Axial images acquired through the brain without intravenous contrast. Images reviewed wi th bone, brain and subdural windows. Images stored on PACS. All CT scanners at this facility use dose modulation, iterative reconstruction, and/or weight based d osing when appropriate to reduce radiation dose to as low as reasonably achievable (ALARA). [facility]: Dose Right [facility]: CareDose [facility]: Dose Right [facility]: Teradose 4D [facility]: [employer] RADIATION DOSE: CT Rad equipment meets quality standard of care and radiation dose reduction techniq ues were employed. CTDIvol: 53.2 mGy. DLP: 1124 mGy-cm. mGy. LIMITATIONS: None. FINDINGS: VENTRICLES: Normal size and contour. CEREBRUM: No masses. No hemorrhage. No midline shift. No evidence for acute infarction. Normal gra y/white matter differentiation. No areas of low density in the white matter. CEREBELLUM: No masses. No hemorrhage. No alteration of density. No evidence for acute infarction. EXTRAAXIAL SPACES: No fluid collections. No masses. ORBITS AND GLOBE: No intra- or extraconal masses. Normal contour of globe without masses. CALVARIUM: No fracture. PARANASAL SINUSES: No fluid or mucosal thickening. SOFT TISSUES: No mass or hematoma. OTHER: No other significant finding. IMPRESSION: No acute intracranial findings. EVIDENCE OF ACUTE STROKE: NO. COMMENT: Quality ID # 436: Final reports with documentation of one or more dose reduction techniques (e.g., Automated exposure control, adjustment of the mA and/or kV according to patient size, use of iterative reconstruction technique) TECHNICAL DOCUMENTATION: JOB ID: [id number] [place]-72 2010 [employer]- All Rights Reserved Reading location - IP/workstation name: [email or web address]
[2017-07-22] MEDS ORDERED: DIPHENHYDRAMINE HCL 50 MG/ML VIAL IM ONE (23:57)
[2017-07-22] MEDS ORDERED: KETOROLAC TROMETHAMINE 60 MG/2 ML SDV IM ONE (23:57)
[2017-07-22] MEDS ORDERED: PROCHLORPERAZINE EDISYLATE INJ 10 MG/2 ML VIAL IM ONE (23:57)
[2017-07-23 03:00] VITALS: BP 124/74
== END 2017-07-23 03:00 | disposition home or self-care (01) ==
LOC: ER 21:13
DX: R51 Headache (principal); I10 Essential (primary) hypertension; K21.9 Gastro-esophageal reflux disease without esophagitis; J44.9 Chronic obstructive pulmonary disease, unspecified
CPT/HCPCS: 99284; 96372; 70450; J1200; J1885; J0780

== ENCOUNTER 2017-08-08 10:02 | Day surgery (SDC) | payer MEDICARE ==
[~2017-08-08 10:02] MED LIST: BESIFLOXACIN HCL 0.6% OPH SUSP 5 ML BOTTLE OS PRN; CYCLOPENTOLATE 0.2%/PHENYLEPHRINE 1% OPH SOLN 2 ML OS PRN; KETOROLAC TROMETHAMINE 0.45% 4 DROP/0.4 ML DROPERETTE OS PRN; TETRACAINE HCL 0.5% OPH SOLN 0.6 ML DROPERETTE ONE; TETRACAINE HCL 0.5% OPH SOLN 0.6 ML DROPERETTE OS PRN; TROPICAMIDE 1% OPH SOLN 3 ML OS PRN
[2017-08-08] MEDS ORDERED: EPINEPHRINE INJ/PF 1 MG/1 ML AMPULE ONE (10:07)
[2017-08-08] MEDS ORDERED: CHONDR SU A NA/HYALUR INTRAOC KIT (SURGICARE) ONE (10:07)
[2017-08-08] MEDS ORDERED: LIDOCAINE 1% INJ-PF (10 MG/ML) 30 ML SDV ONE (10:07)
[2017-08-08] MEDS ORDERED: TOBRAMYCIN SULFATE/DEXAMETH OPH OINTMENT 3.5 GM ONE (10:07)
[2017-08-08] MEDS: CYCLOPENTOLATE 0.2%/PHENYLEPHRINE 1% OPH SOLN 2 ML OS PRN ×3 (10:25→10:50)
[2017-08-08] MEDS: BESIFLOXACIN HCL 0.6% OPH SUSP 5 ML BOTTLE OS PRN ×3 (10:25→11:15)
[2017-08-08] MEDS: TROPICAMIDE 1% OPH SOLN 3 ML OS PRN ×3 (10:25→10:50)
[2017-08-08] MEDS: TETRACAINE HCL 0.5% OPH SOLN 0.6 ML DROPERETTE OS PRN ×2 (10:25→10:57)
[2017-08-08] MEDS ORDERED: FENTANYL CITRATE INJ/PF 100 MCG/2 ML AMPUL ONE (10:37)
[2017-08-08] MEDS ORDERED: MIDAZOLAM 2 MG/2 ML INJ ONE (10:37)
== END 2017-08-08 11:50 | disposition home or self-care (01) ==
LOC: SC 10:02
PROVIDERS: ATTEND Ophthalmology
DX: H25.12 Age-related nuclear cataract, left eye (principal); F17.210 Nicotine dependence, cigarettes, uncomplicated; J44.9 Chronic obstructive pulmonary disease, unspecified; K21.9 Gastro-esophageal reflux disease without esophagitis; I10 Essential (primary) hypertension; D64.9 Anemia, unspecified; Z79.899 Other long term (current) drug therapy; Z79.51 Long term (current) use of inhaled steroids; Z85.118 Personal history of other malignant neoplasm of bronchus and lung; Z90.2 Acquired absence of lung [part of]
CPT/HCPCS: 66984; V2630; J2250; J3490 ×3; A9270; J0171; J3010; 142

== ENCOUNTER 2017-08-22 06:22 | Day surgery (SDC) | payer MEDICARE ==
[~2017-08-22 06:22] MED LIST changes: -BESIFLOXACIN HCL 0.6% OPH SUSP 5 ML BOTTLE OS PRN; +BUPIVACAINE HCL 0.75% INJ/PF (7.5 MG/1 ML) 10 ML SDV OD PRN; -CYCLOPENTOLATE 0.2%/PHENYLEPHRINE 1% OPH SOLN 2 ML OS PRN; +KETOROLAC TROMETHAMINE 0.45% 4 DROP/0.4 ML DROPERETTE OD PRN; -KETOROLAC TROMETHAMINE 0.45% 4 DROP/0.4 ML DROPERETTE OS PRN; +LIDOCAINE 4% INJ/PF (40 MG/ML) 5 ML AMPUL OD PRN; -TETRACAINE HCL 0.5% OPH SOLN 0.6 ML DROPERETTE ONE; -TETRACAINE HCL 0.5% OPH SOLN 0.6 ML DROPERETTE OS PRN; -TROPICAMIDE 1% OPH SOLN 3 ML OS PRN
[2017-08-22] MEDS: TETRACAINE HCL 0.5% OPH SOLN 0.6 ML DROPERETTE OD PRN ×3 (06:58→07:50)
[2017-08-22] MEDS: CYCLOPENTOLATE 0.2%/PHENYLEPHRINE 1% OPH SOLN 2 ML OD PRN ×3 (06:59→07:35)
[2017-08-22] MEDS: TROPICAMIDE 1% OPH SOLN 3 ML OD PRN ×3 (06:59→07:35)
[2017-08-22] MEDS: BESIFLOXACIN HCL 0.6% OPH SUSP 5 ML BOTTLE OD PRN ×3 (06:59→08:12)
[2017-08-22] MEDS ORDERED: CHONDR SU A NA/HYALUR INTRAOC KIT (SURGICARE) ONE (07:09)
[2017-08-22] MEDS ORDERED: EPINEPHRINE INJ/PF 1 MG/1 ML AMPULE ONE (07:09)
[2017-08-22] MEDS ORDERED: TOBRAMYCIN SULFATE/DEXAMETH OPH OINTMENT 3.5 GM ONE (07:09)
[2017-08-22] MEDS ORDERED: LIDOCAINE 1% INJ-PF (10 MG/ML) 30 ML SDV ONE (07:09)
[2017-08-22] MEDS ORDERED: MIDAZOLAM 2 MG/2 ML INJ ONE (07:25)
== END 2017-08-22 08:52 | disposition home or self-care (01) ==
LOC: SC 06:22
PROVIDERS: ATTEND Ophthalmology
DX: H25.11 Age-related nuclear cataract, right eye (principal); Z98.42 Cataract extraction status, left eye; F17.210 Nicotine dependence, cigarettes, uncomplicated; J44.9 Chronic obstructive pulmonary disease, unspecified; K21.9 Gastro-esophageal reflux disease without esophagitis; I10 Essential (primary) hypertension; Z79.899 Other long term (current) drug therapy; Z85.118 Personal history of other malignant neoplasm of bronchus and lung; Z90.2 Acquired absence of lung [part of]
CPT/HCPCS: 66984; V2630; J2250; J3490 ×3; A9270; J0171; 142

== ENCOUNTER → 2018-01-09 | Outpatient (CLI) | payer MEDICARE ==
--- NOTE | 2018-01-09 10:41 | WOMENS IMAGING REPORT ---
EXAM DESCRIPTION: BONE DENSITY HIP/SPINE COMPLETED DATE/TIME: 01/09/2018 10:27 am REASON FOR STUDY: BONE DENSITY TEST/ M81.0 Z12.31 ENCNTR SCREEN MAMMOGRAM FOR MALIGNANT NEOPLASM OF DANIEL M81.0 AGE-RELATED OSTEOPOROSIS W/O CURRENT PATHOLOGICAL FRAC COMPARISON: February 2015 TECHNIQUE: Dual-Energy X-ray Absorptiometry (DEXA) of the AP Spine and Hip. LIMITATIONS: None. FINDINGS: LUMBAR SPINE: The bone mineral density (BMD) measured from L1-L4 in the AP projection correlates with a T-score of -2.6, which is osteoporosis as defined by the World Health Organization. -1.1% decrease as compared to the previous study HIP: The bone mineral density (BMD) measured in the left hip correlates with a T-score of -2.0, which is o steopenia as defined by the World Health Organization. -1.2% decrease as compared to the previous st udy. IMPRESSION: 1. LUMBAR SPINE: Osteoporosis 2. HIP: Osteopenia COMMENT: The World Health Organization defines low BMD as follows: T-score: Normal: Greater than -1.0 Osteopenia: Between -1.0 and -2.5 Osteoporosis: Less than -2.5 without fractures Established osteoporosis: Less than -2.5 with fractures In general, you may wish to consider: Diagnosis Treatment Follow-up DEXA Normal BMD Prevention 2-3 years Osteopenia Prevention/Therapy 1-2 years Osteoporosis Therapy Yearly TECHNICAL DOCUMENTATION: JOB ID: [id number] [employer]- All Rights Reserved Reading location - IP/workstation name: [email or web address]
--- NOTE | 2018-01-09 14:37 | WOMENS IMAGING REPORT ---
EXAM DESCRIPTION: BILAT SCREENING MAMMO W/CAD COMPLETED DATE/TIME: 01/09/2018 10:26 am REASON FOR STUDY: BILATERAL SCREENING MAMMO /Z12.31 Z12.31 ENCNTR SCREEN MAMMOGRAM FOR MALIGNANT NE OPLASM OF DANIEL M81.0 AGE-RELATED OSTEOPOROSIS W/O CURRENT PATHOLOGICAL FRAC COMPARISON: [id number] TECHNIQUE: Standard craniocaudal and mediolateral oblique views of each breast recorded using digita l acquisition. LIMITATIONS: None. FINDINGS: No masses, calcifications or architectural distortion. No areas of suspicion. Read with the assistance of CAD. .[facility] - R2 [employer] Version 1.3 .[facility] Imaging - R2 Cenova Version 1.3 .[facility] Imaging - R2 Cenova Version 2.4 .[facility] [place] - R2 Cenova Version 2.4 .[facility] - R2 [employer]or Services Manager Version 9.2 IMPRESSION: NORMAL MAMMOGRAM. BIRADS 1. BREAST DENSITY: b. There are scattered areas of fibroglandular density. BIRAD: 1 NEGATIVE RECOMMENDATION: ROUTINE SCREENING COMMENT: The patient has been notified of the results by letter per MQSA requirements. Additional no tification policies are in place for contacting patient with suspicious or incomplete findings. Quality ID #225: The [employer] recommends an annual screening mammogram for women aged 40 years or over. This facility utilizes a reminder system to ensure that all patients receive reminder letters, and/or direct phone calls for appointments. This includes reminders for routine scr eening mammograms, diagnostic mammograms, or other Breast Imaging Interventions when appropriate. Th is patient will be placed in the appropriate reminder system. The [employer] (ACR) has developed recommendations for screening MRI of the breast s in certain patient populations, to be used in conjunction with mammography. Breast MRI surveillanc e may be appropriate for women with more than 20% lifetime risk of developing breast cancer as deter mined by genetic testing, significant family history of the disease, or history of mantle radiation f or Hodgkins Disease. ACR Practice Guidelines 2008. TECHNICAL DOCUMENTATION: FINDING NUMBER: (1) ASSESSMENT: (1) JOB ID: [id number] 0001 [employer]- All Rights Reserved Reading location - IP/workstation name: [email or web address]
== END ==
LOC: WI 09:16
PROVIDERS: ATTEND Physician Assistant
DX: Z12.31 Encounter for screening mammogram for malignant neoplasm of breast (principal); M81.0 Age-related osteoporosis without current pathological fracture
CPT/HCPCS: 77067; 77080

== ENCOUNTER → 2019-02-10 | Outpatient (CLI) | payer MEDICARE, OTHER ==
--- NOTE | 2019-02-10 09:55 | RADIOLOGY REPORT (SQ) ---
EXAM DESCRIPTION: CT CHEST WITHOUT COMPLETED DATE/TIME: 02/10/2019 7:27 am REASON FOR STUDY: LUNG CA (C34.32) C34.32 MALIGNANT NEOPLASM OF LOWER LOBE, LEFT BRONCHUS OR OBDULIO COMPARISON: 12/20/2016 TECHNIQUE: CT scan performed of the chest without intravenous contrast. Images reviewed with lung, soft tissue and bone windows. Reconstructed coronal and sagittal MPR images reviewed. All images st ored on PACS. All CT scanners at this facility use dose modulation, iterative reconstruction, and/or weight based d osing when appropriate to reduce radiation dose to as low as reasonably achievable (ALARA). [facility]: Dose Right [facility]: CareDose [facility]: Dose Right [facility]: Teradose 4D [facility]: [employer] RADIATION DOSE: CT Rad equipment meets quality standard of care and radiation dose reduction techniq ues were employed. CTDIvol: 5.9 mGy. DLP: 207 mGy-cm. mGy. LIMITATIONS: No technical limitations. FINDINGS: LUNGS AND PLEURA: Left lower lobectomy. No developing nodules or infiltrate. HILAR AND MEDIASTINAL STRUCTURES: No identified masses or abnormal nodes. No obvious aneurysm. HEART AND VASCULAR STRUCTURES: Dilated ascending aorta, stable at about 5 cm. No pericardial effusio n. UPPER ABDOMEN: Pneumobilia. Limited exam. THYROID AND OTHER SOFT TISSUES: No masses. No adenopathy. BONES: Nothing acute. HARDWARE: None in the chest. OTHER: No other significant findings. IMPRESSION: No evidence of local recurrence or metastatic disease. TECHNICAL DOCUMENTATION: JOB ID: [id number] Quality ID # 436: Final reports with documentation of one or more dose reduction techniques (e.g., Au tomated exposure control, adjustment of the mA and/or kV according to patient size, use of iterative reconstruction technique) 2010 [employer]- All Rights Reserved Reading location - IP/workstation name: [email or web address]
== END ==
LOC: RAD 07:14
PROVIDERS: ATTEND Physician Assistant Medical
DX: C34.32 Malignant neoplasm of lower lobe, left bronchus or lung (principal)
CPT/HCPCS: 71250

== ENCOUNTER → 2019-02-12 | Outpatient (CLI) | payer MEDICARE, OTHER ==
--- NOTE | 2019-02-12 11:53 | WOMENS IMAGING REPORT ---
EXAM DESCRIPTION: 3D SCREENING MAMMO BILAT COMPLETED DATE/TIME: 02/12/2019 11:21 am REASON FOR STUDY: Z12.31 SCREENING MAMMO Z12.31 ENCNTR SCREEN MAMMOGRAM FOR MALIGNANT NEOPLASM OF B RE COMPARISON: [id number] EXAM PARAMETERS: Views: Standard craniocaudal and mediolateral oblique views of each breast recorded using digital acquisition and breast tomosynthesis. Read with the assistance of CAD. .[facility] - [employer] Profile Saw Setup Operator Version 9.2 LIMITATIONS: None. FINDINGS: No suspicious masses, suspicious calcifications or architectural distortion. No areas of c oncern. IMPRESSION: NEGATIVE MAMMOGRAM. BIRADS 1. BREAST DENSITY: b. There are scattered areas of fibroglandular density. BIRAD: ASSESSMENT: 1 NEGATIVE RECOMMENDATION: ROUTINE SCREENING COMMENT: The patient has been notified of the results by letter per MQSA requirements. Additional no tification policies are in place for contacting patient with suspicious or incomplete findings. Quality ID #225: The [employer] recommends an annual screening mammogram for women aged 40 years or over. This facility utilizes a reminder system to ensure that all patients receive reminder letters, and/or direct phone calls for appointments. This includes reminders for routine scr eening mammograms, diagnostic mammograms, or other Breast Imaging Interventions when appropriate. Th is patient will be placed in the appropriate reminder system. TECHNICAL DOCUMENTATION: FINDING NUMBER: (1) ASSESSMENT: (1) JOB ID: [id number] [employer]- All Rights Reserved Reading location - IP/workstation name: [email or web address]
== END ==
LOC: WI 11:00
PROVIDERS: ATTEND Physician Assistant
DX: Z12.31 Encounter for screening mammogram for malignant neoplasm of breast (principal)
CPT/HCPCS: 77063; 77067

== ENCOUNTER → 2019-09-09 | Outpatient (CLI) | payer OTHER, MEDICARE ==
[2019-09-10 13:37] LABS: ANTICHROMATIN AB 0.6 AI (0.0-0.9); CENTROMERE B AB <0.2 AI (0.0-0.9); JO-1 ANTIBODY (ANACOMP) <0.2 AI (0.0-0.9); SJOGREN'S ANTI-SS-B AB 1.6 AI (0.0-0.9); SJOGREN'S SS-A ANTIBODY <0.2 AI (0.0-0.9)
[2019-09-10 14:40] LABS: ACTIN (SMOOTH MUSCLE) ANTIBODY 25 Units (0-19); DNA DOUBLE STRAND ANTIBODY ANA 213 IU/mL (0-9); MITOCHONDRIAL (M2) ANTIBODY <20.0 Units (0.0-20.0)
== END ==
LOC: OD 08:56
PROVIDERS: ATTEND Physician Assistant
DX: R94.5 Abnormal results of liver function studies (principal)
CPT/HCPCS: 36415; 86225; 86235; 86256

== ENCOUNTER 2020-01-15 08:19 | Day surgery (SDC) | payer OTHER, MEDICARE ==
[2020-01-12 11:30] LABS: HEMATOCRIT 31.3 % (36.0-47.0); HEMOGLOBIN 9.7 g/dL (12.0-15.5); MEAN CORPUSCULAR HEMOGLOBIN 17.6 pg (27.0-33.4); MEAN CORPUSCULAR HGB CONC 30.9 g/dL (32.0-36.0); PLATELET COUNT 183 10^3/uL (150-450); RED CELL DISTRIBUTION WIDTH 22.6 % (11.5-14.0); WHITE BLOOD COUNT 3.1 10^3/uL (4.0-10.5)
[2020-01-12 12:01] LABS: ANION GAP 12 (5-19); BLOOD UREA NITROGEN 12 mg/dL (7-20); CALCIUM 8.9 mg/dL (8.4-10.2); CARBON DIOXIDE 25 mmol/L (22-30); CHLORIDE 104 mmol/L (98-107); GLUCOSE 188 mg/dL (75-110)
[2020-01-12 12:02] LABS: MEAN CORPUSCULAR VOLUME 57 fl (80-97)
--- NOTE | 2020-01-12 22:47 | EKG REPORT ---
SEVERITY:- ABNORMAL ECG - SINUS RHYTHM PROBABLE ANTEROSEPTAL INFARCT, AGE INDETERM : Confirmed by: Ishmael Franco 12-Jan-2020 22:47:20
[2020-01-13 13:10] LABS: PATH REVIEW PATHOLOGIST REVIEWED
[~2020-01-15 08:19] MED LIST changes: -BUPIVACAINE HCL 0.75% INJ/PF (7.5 MG/1 ML) 10 ML SDV OD PRN; +CEFAZOLIN 2 GM/D5W RTU 2 GM/50 ML RTUPB IV PRN; -KETOROLAC TROMETHAMINE 0.45% 4 DROP/0.4 ML DROPERETTE OD PRN; +LACTATED RINGERS 1000 ML IV PRN; +LIDOCAINE 0.5% INJ-PF (5 MG/ML) 50 ML SDV SUBCUT PRN; -LIDOCAINE 4% INJ/PF (40 MG/ML) 5 ML AMPUL OD PRN
[2020-01-15] MEDS ORDERED: MIDAZOLAM 2 MG/2 ML INJ ONE (10:54)
[2020-01-15] MEDS ORDERED: DEXMEDETOMIDINE INJ 80 MCG/20 ML VIAL IV ONE (10:54)
[2020-01-15] MEDS ORDERED: FENTANYL CITRATE INJ/PF 100 MCG/2 ML AMPUL ONE (10:54)
[2020-01-15] MEDS ORDERED: LIDOCAINE 2% INJ-PF (100 MG/5 ML) SYRINGE ONE (10:54)
[2020-01-15] MEDS ORDERED: PROPOFOL INJ 200 MG/20 ML VIAL IV ONE (10:55)
[2020-01-15] MEDS ORDERED: BUPIVACAINE INJ/PF LIPOSOME/PF 266 MG/20 ML SDV ONE (10:59)
[2020-01-15] MEDS ORDERED: LIDOCAINE 1%/EPINEPHRINE INJ 20 ML VIAL ONE (11:10)
[2020-01-15] MEDS ORDERED: CEFAZOLIN 2 GM/D5W RTU 2 GM/50 ML RTUPB IV ONE (11:15)
[2020-01-15] MEDS ORDERED: OXYCODONE-ACETAMINOPHEN 5-325 MG TABLET PO PRN ×2 (11:22)
[2020-01-15] MEDS ORDERED: DIPHENHYDRAMINE HCL 50 MG/ML VIAL IV PRN (11:22)
[2020-01-15] MEDS ORDERED: FENTANYL CITRATE INJ/PF 100 MCG/2 ML AMPUL IV PRN ×3 (11:22)
[2020-01-15] MEDS ORDERED: ONDANSETRON HCL INJ/PF 4 MG/2 ML SDV IV PRN (11:22)
[2020-01-15] MEDS ORDERED: MEPERIDINE HCL/PF INJ 25 MG/1 ML DISP.SYRIN IV PRN (11:22)
--- NOTE | 2020-01-15 11:37 | Operative Report ---
Nonrecallable Operative Report DATE OF SURGERY: 01/15/20 PREOPERATIVE DIAGNOSIS: Sebaceous cyst left jaw POSTOPERATIVE DIAGNOSIS: Same OPERATION: Excision of sebaceous cyst left jaw SURGEON: LAYO MATHEWS ANESTHESIA: Moderate Sedation TISSUE REMOVED OR ALTERED: Sebaceous cyst left jaw COMPLICATIONS: None ESTIMATED BLOOD LOSS: 2 cc INTRAOPERATIVE FINDINGS: See note PROCEDURE: Same patient was brought to the operating awake alert in stable condition placed on the operating table supine position and given IV sedation. Patient had a 1.5 cm cystic lesion at the angle of her left jaw. After appropriate timeout and site verification the procedure commenced. The 2 cm cystic lesion was anesthetized on the skin over it with 1% lidocaine with epinephrine. Elliptical incision was made with a 15 blade. Dissection was carried down with a 15 blade to subcutaneous fatty tissue underneath the cyst and it was excised. The skin was then reapproximated with 3-0 Vicryl in the subdermal tissue and the epidermis was reapproximated interrupted placed 4-0 nylon sutures. Patient tolerated procedure well was transferred recovery in stable condition no complications
--- NOTE | 2020-01-15 11:39 | Discharge Summary ---
Discharge Summary (SDC) - Discharge Final Diagnosis: Sebaceous cyst left jaw Date of Surgery: 01/15/20 Discharge Date: 01/15/20 Condition: Good Treatment or Instructions: Leave bandage on today tomorrow remove it and wash it at least 3 times a day with soap and water undressed after tomorrow Referrals: CHELY WELLS MD [Primary Care Provider] - Discharge Diet: As Tolerated Discharge Activity: Activity As Tolerated Report the Following to Your Physician Immediately: Unusual Bleeding, Increased Soreness, Drainage-Green
[2020-01-15 13:43] VITALS: BP 116/67
--- OUTSIDE RECORDS SUMMARY | 2020-01-16 15:03 | XMS REPORT ---
:1950 [facility] [address] [place] [address] Care Team Providers Name Role Phone Other, [phone] Primary Care Physician Unavailable MD Darryl Attending Clinician Unavailable MD Darryl Attending Clinician Unavailable Allergies, Adverse Reactions, Alerts This patient has no known allergies or adverse reactions. Medications Ordered Filled Start Stop Current Ordering Indication Dosage Frequency Signature Comments Components Medication Medication Date Date Medication? Clinician (SIG) Name Name Anoro 2018-03 Yes 0 Anoro Ellipta 1-05 Ellipta 62.5-25 00:00: 62.5-25 MCG/INH 00 MCG/INH Inhalation Inhalation Aerosol Aerosol Powder Powder Breath Breath Activated Activated Quantity: 60 Refills: 0 ,,, Start : 07-Jan-2019 Active Vitamin D Yes 0 with 3-08 Refill(s) Fluoride 10:58: 0.25 mg/mL 00 oral liquid Proventil Yes 0 HFA 3-08 Refill(s) 90mcg/inh 10:57: inhaler 00 Centamin Yes 0 3-08 Refill(s) 10:57: 00 pantoprazol Yes 0 e 3-08 Refill(s) 10:56: 00 amLODIPine Yes 0 3-08 Refill(s) 10:54: 00 amLODIPine 2016-03 Yes 0 amLODIPine Besylate 5 0-27 Besylate 5 MG Oral 00:00: MG Oral Tablet 00 Tablet Refills: 0 ,,, Start : 7Active 90 Tablet Bottle Metoprolol Yes 0 Q0.5D Metoprolol Tartrate 25 Tartrate MG Oral 25 MG Oral Tablet Tablet TAKE 1 TABLET TWICE DAILY. Refills: 0 ,,, Active Pantoprazol Yes 0 Pantoprazo e Sodium 40 le Sodium MG 40 MG Intravenous Intravenou Solution s Solution Reconstitut Reconstitu ed allyssa USE DIRECTED. Refills: 0 ,,, Active Ventolin Yes 0 Q4H Ventolin HFA 108 (90 HFA 108 Base) (90 Base) MCG/ACT MCG/ACT Inhalation Inhalation Aerosol Aerosol Solution Solution INHALE 1 PUFF EVERY 4 HOURS NEEDED. Refills: 0 ,,, Active Multivitami Yes 0 Multivitam ns CAPS ins CAPS Refills: 0 ,,, Active Vitamin D3 Yes 0 Vitamin D3 25 MCG 25 MCG (1000 UT) (1000 UT) Oral Oral Capsule Capsule Refills: 0 ,,, Active Problems Condition Condition Condition Status Onset Resolution Last Treatin g Comments Name Details Category Date Date Treatment Clinician Date Diabetes Diabetes Problem Active mellitus mellitus Lung cancer Lung cancer Problem Active Hyperlipide Hyperlipide Problem Active mario mario Varicose Varicose Problem Active veins veins Abdominal Abdominal Problem Active aortic aortic aneurysm aneurysm High risk High risk Problem Active medication medication use use Aneurysm of Aneurysm of Problem Active aorta aorta Heart Heart Problem Active murmur murmur Coronary Coronary Problem Active artery artery disease disease Aneurysm, Aneurysm, Problem Active thoracic thoracic aortic aortic Blood tests Blood tests Problem Active prior to prior to treatment treatment or or procedure procedure Procedures Procedure Date / Time Performed Performing Clinician Devic e History of Lung surgery History of Cholecystectomy Results Test Description Test Time Test Comments Text Results Atomic Results Result Comments CT - Chest without 2020 13:16:00 EXAM DESCRIPTIO N: CT CHEST W/O Contrast CONTRASTIMAGES COMPLETED NYDIA E/TIME: 2020 1:02 pmREASON FOR STUDY: I71.2Aneurysm, thoracic aort ic ; [id number] DX: Thoracic aortic aneurysm, without ruptureCOM PARISON: 07/14/2019TECHNIQUE: CT scan performed of the chest witho ut intravenous contrast. Image s reviewed with lung, soft tis isabella and bone windows. Reconstructed coronal and sagittal MPR images revi ewed. All images stored on PACS.Al l CT scanners at this facility us e dose modulation, iterative recons truction, and/or weight based dosing w hen appropriate to reduce radiat ion dose to as low as reasonably achi evable (ALARA).[facility]: Dose Right [facility]: CareDose [facility]: Dose Right [facility]: Teradose 4D [facility]: Smart TechnologiesRADIATION DOSE: mGy.LIMITATIONS: No technic al limitations.FINDINGS: LUNGS AND PLEURA: No masses, infiltrat es, or pneumothorax. No pleural ef fusions or pleural calcifications.HI LAR AND MEDIASTINAL STRUCTURES: No i dentified masses or abnormal nodes. N o obvious aneurysm.HEART AND VASCULAR STRUCTURES: Stable aneurysma l dilatation of the ascending thoracic aorta. Largest diameter is approximately 5 cm. Stable coronary artery calcification.UPPER A BDOMEN: Intra hepatic and extrahepat ic pneumobilia consistent with prior sphincterotomy.THYROID AND O THER SOFT TISSUES: No masses. No adenopathy.BONES: No signifi cant finding.HARDWARE: None in th e chest.OTHER: No other signif icant findings.IMPRESSION: Stable aneurysmal dilatation of the ascending thoracic aorta. N o other significant findings.TECHNIC AL DOCUMENTATION: JOB ID: [id number] ID # [id number]: Fin al reports with documentation o f one or more dose reduction techniqu es (e.g., Automated exposure control, adjustment of the mA and/or kV according to patient size, u se of iterative reconstruction kolby hnique)? 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 0 Thoracic aortic aneurysm, without rupture Active 0 Thoracic aortic aneurysm, without rupture Active 0 Encounters Start End Encounter Admission Attending Care Care Encounter Date/Time Date/Time Type Type Clinicians Facility Department ID 2020 2020 Dorian Virk [facility] [id number] 12:05:22 23:59:59 Dorian Andrews 2020 2020 Appointment DALE Andrews [facility] [id number] 15:15:00 15:15:00 ; Dorian Andrews MD 2019-07-14 2019-07-14 Dorian Virk [facility] 2002 12:19:50 23:59:59 Dorian Andrews 2019-07-14 2019-07-14 Appointment DALE Andrews [facility] [id number] 15:00:00 15:00:00 ; Dorian Andrews MD 2019-01-09 2019-01-09 O Dorian Dupree [facility] 2002 [id number] 09:47:59 23:59:59 Dorian Andrews 2019-01-09 2019-01-09 [facility] [id number] 14:30:00 14:30:00 ; Dorian Andrews MD 2018-07-05 2018-07-05 Appointment Darryl [facility] [id number] 16:15:00 16:15:00 ; Dorian Andrews MD 2018-01-18 2018-01-18 Appointment [facility] [id number] 08:30:00 08:30:00 ; DESIREE adhikari, Nuclear 3 2017-12-28 2017-12-28 Appointment [facility] [id number] 10:15:00 10:15:00 ; Dorian Andrews MD 2017-12-13 2017-12-13 Appointment [facility] [id number] 09:30:00 09:30:00 ; Taisha Nunez 2017-12-07 2017-12-07 Appointment [facility] [id number] 12:00:00 12:00:00 ; Dorian Andrews MD Family History Family Member Diagnosis Comments Start Date Stop Date Father Family history of liver disease Mother Family history of Old age Payers Payer Name Policy Type Policy Number Effective Date Expiration D ate Plan of Treatment Planned Activity Planned Date Details Comments Future Scheduled Test [code = ] Social History Social History Observation Description Sex Female Vital Signs Vital Name Observation Time Observation Value Comments Systolic blood pressure 2020 15:37:00 122 mm[Hg] Loca tion: LUE; Position: Sittin g Diastolic blood pressure 2020 15:37:00 62 mm[Hg] Loc ation: LUE; Position: Sittin g Body height 2020 15:37:00 60 [in_us] Weight 2020 15:37:00 134 [lb_av] Body mass index (BMI) 2020 15:37:00 26.17 kg/m2 [Ratio] Body temperature 2020 15:37:00 97.9 [degF] Heart Rate 2020 15:37:00 66 /min Respiratory rate 2020 15:37:00 16 /min O2 SAT 2020 15:37:00 98 % Hospital Discharge Instructions No data available for this sectionNameDatesDetailsInstructions not documented
== END 2020-01-15 13:25 | disposition home or self-care (01) ==
LOC: OROUT 08:19
PROVIDERS: ATTEND Surgery
DX: L72.3 Sebaceous cyst (principal); J44.9 Chronic obstructive pulmonary disease, unspecified; I10 Essential (primary) hypertension; K21.9 Gastro-esophageal reflux disease without esophagitis; Z79.899 Other long term (current) drug therapy; Z03.818 Encounter for observation for suspected exposure to other biological agents ruled out
CPT/HCPCS: 93005; 36415; 85027; 87635; 80048; 93010; 00300; 21012; J2250; J3010; J3490 ×2; J0690; C9803; 300; C9290; J2001; J2704

== ENCOUNTER → 2020-03-16 | Outpatient (CLI) | payer OTHER, MEDICARE ==
--- NOTE | 2020-03-16 10:45 | WOMENS IMAGING REPORT ---
EXAM DESCRIPTION: BONE DENSITY HIP/SPINE IMAGES COMPLETED DATE/TIME: 03/16/2020 10:25 am REASON FOR STUDY: M81.0 Z12.31 ENCNTR SCREEN MAMMOGRAM FOR MALIGNANT NEOPLASM OF DANIEL M81.0 AGE-REL ATED OSTEOPOROSIS W/O CURRENT PATHOLOGICAL FRAC COMPARISON: 01/09/2018 TECHNIQUE: Dual-Energy X-ray Absorptiometry (DEXA) of the AP Spine and Hip. LIMITATIONS: None. FINDINGS: LUMBAR SPINE: The bone mineral density (BMD) measured from L1-L4 in the AP projection correlates with a T-score of -2.3, which is osteopenia as defined by the World Health Organization. BMD Change vs Baseline: -2.6% HIP: The bone mineral density (BMD) measured in the left hip correlates with a T-score of -2.2 in the neck , which is osteopenia as defined by the World Health Organization. BMD Change vs Baseline: -5.5% 10 year Fracture Risk Assessment: Major Osteoporotic Fracture: 17% without prior fracture. 25% with prior fracture. Hip Fracture: 7.1% without prior fracture. 10% with prior fracture. IMPRESSION: 1. LUMBAR SPINE WHO CLASSIFICATION: OSTEOPENIA. 2. HIP WHO CLASSIFICATION: OSTEOPENIA. OVERALL ASSESSMENT: WHO CLASSIFICATION: OSTEOPOROSIS. COMMENT: The World Health Organization defines low BMD as follows: T-score: Normal: At or above -1.0 Osteopenia: Between -1.0 and -2.5 Osteoporosis: At or below -2.5 without fractures Established osteoporosis: At or below -2.5 with fractures In general, you may wish to consider: Diagnosis Treatment Follow-up DEXA Normal BMD Prevention 2-3 years Osteopenia Prevention/Therapy 1-2 years Osteoporosis Therapy Yearly TECHNICAL DOCUMENTATION: JOB ID: [id number] [employer]- All Rights Reserved Reading location - IP/workstation name: [email or web address]
--- NOTE | 2020-03-16 13:07 | WOMENS IMAGING REPORT ---
EXAM DESCRIPTION: BILAT SCREENING MAMMO W/CAD IMAGES COMPLETED DATE/TIME: 03/16/2020 10:25 am REASON FOR STUDY: ROUTNE SCREENING MAMMOGRAM Z12.31 Z12.31 ENCNTR SCREEN MAMMOGRAM FOR MALIGNANT NE OPLASM OF DANIEL M81.0 AGE-RELATED OSTEOPOROSIS W/O CURRENT PATHOLOGICAL FRAC COMPARISON: 02/12/2019, 01/09/2018, 10/03/2016 EXAM PARAMETERS: Standard craniocaudal and mediolateral oblique views of each breast recorded using digital acquisition. Read with the assistance of CAD. .[facility] - [employer] Version 9.2 LIMITATIONS: None. FINDINGS: No suspicious masses, suspicious calcifications or architectural distortion. No areas of c oncern. IMPRESSION: NEGATIVE MAMMOGRAM. BIRADS 1 BREAST DENSITY: b. There are scattered areas of fibroglandular density. BIRAD: ASSESSMENT: 1 NEGATIVE RECOMMENDATION: ROUTINE SCREENING COMMENT: The patient has been notified of the results by letter per MQSA requirements. Additional no tification policies are in place for contacting patient with suspicious or incomplete findings. Quality ID #[id number]: The [employer] recommends an annual screening mammogram for women aged 40 years or over. This facility utilizes a reminder system to ensure that all patients receive reminder letters, and/or direct phone calls for appointments. This includes reminders for routine scr eening mammograms, diagnostic mammograms, or other Breast Imaging Interventions when appropriate. Th is patient will be placed in the appropriate reminder system. TECHNICAL DOCUMENTATION: FINDING NUMBER: (1) ASSESSMENT: (1) JOB ID: [id number] 2010 [employer]- All Rights Reserved Reading location - IP/workstation name: [email or web address]
== END ==
LOC: WI 10:26
PROVIDERS: ATTEND Internal Medicine
DX: Z12.31 Encounter for screening mammogram for malignant neoplasm of breast (principal); M81.0 Age-related osteoporosis without current pathological fracture
CPT/HCPCS: 77067; 77080